=== PATIENT | male | born 1940 | race Caucasian/White ===

== ENCOUNTER → 2016-08-20 | Outpatient (CLI) | payer OTHER ==
[~2016-08-20] MED LIST: AMIO0.1T PO; AMIO200T4 PO; ASMIN INH; CRD200 PO; FURO-85 PO; IPRA1AER2 INH; LISI-461 PO; LSX20 PO; MECL1TAB42 PO; ONDA4TAB10 SL; POTA10CA28 PO; POTA10TA PO; PRVC/40 PO; SERT-234 PO; TAMS0.4C38 PO; TPRSR50 PO; WARF1TAB PO
[2016-08-20 14:09] LABS: THYROID STIMULATING HORMONE 2.41 uIu/ml (0.300-4.500)
== END | disposition home or self-care (01) ==
LOC: C.LAB1850 12:00
PROVIDERS: ATTEND Internal Medicine Cardiovascular Disease
DX: Z51.81 Encounter for therapeutic drug level monitoring (principal); Z79.899 Other long term (current) drug therapy

== ENCOUNTER 2016-09-11 16:02 | Observation (INO) | payer OTHER ==
[~2016-09-11] VITALS: Ht 182.9 cm; Wt 91.7 kg
[~2016-09-11 16:02] MED LIST changes: -AMIO0.1T PO; -AMIO200T4 PO; -FURO-85 PO; -LISI-461 PO; -MECL1TAB42 PO; -ONDA4TAB10 SL; -POTA10CA28 PO
[2016-09-11] MEDS ORDERED: FURO-85 PO (17:04)
[2016-09-11] MEDS ORDERED: POTA10CA28 PO (17:04)
[2016-09-11] MEDS ORDERED: AMIO200T4 PO (17:04)
[2016-09-11] MEDS ORDERED: LISI-461 PO (17:04)
[2016-09-11] MEDS ORDERED: SODIUM CHLORIDE 0.9% 1000ML 1,000 ML IV STA (17:21)
[2016-09-11] MEDS ORDERED: DIAZEPAM INJ 5 MG/ML 2 ML CARP IV STA (17:21)
[2016-09-11] MEDS ORDERED: MECLIZINE HCL 25 MG TAB PO STA (17:21)
[2016-09-11] MEDS ORDERED: ONDANSETRON INJ 2 MG/ML 2 ML VIAL IV STA (17:21)
--- NOTE | 2016-09-11 17:23 | EMERGENCY ROOM VISIT NOTE ---
History Report prepared by Dawn: Hector Guaman Under the Supervision of: Dr. Fritz Salgado M.D. First contact with patient: 17:15 Chief Complaint: DIZZY Stated Complaint: DIZZY, GAGGING, FALLING OVER Nursing Triage Summary: Pt fell out of bed this morning, dizzy. denies hitting head. Per , pt reports that "everything was going around in a ring. then was gagging and nothing was coming out". Pt unsteady on feet, dry heaves, throughing up yellowish mucus. Pt reports dizziness with eyes open, or movement. denies pain Pt reports dizziness, N,V when eyes open. Gait very unsteady. Pt's reports pt attemped to get oob and face planted on carpet. No visable injuries to face. Pt is on Coumadin for Afib. History of Present Illness The patient is a 75 year old male who presents to the Emergency Room with complaints of persistent dizziness that started this morning. He says that only laying down makes the dizziness dissipate. If he sits up, the dizziness remains. The patient says that he has never had this before. Per the patient's , the patient went to the bathroom around 0700 this morning, and when he was sitting on the toilet, he got really lightheaded. The patient then went back into bed, but could not get out of bed. When he tried to get out of bed, he fell flat on his face. The patient adds that he has been nauseous, gagging and dry heaving. He has also been vomiting yellowish mucous. He says that has been having abdominal pain as well. The patient is on Coumadin for atrial fibrillation. Source of History: patient, spouse/significant other Onset: This morning Position: other (global - dizziness) Timing: other (persistent) Modifying Factors (Worsening): other (sitting up) Modifying Factors (Relieving): other (laying down) Associated Symptoms: + nausea, + vomiting (yellowish mucous), + abdominal pain Note: Associated symptoms: Gagging, dry heaving. Lightheaded on toilet. Review of Systems See HPI for pertinent positives & negatives. A total of 10 systems reviewed and were otherwise negative. Past Medical & Surgical Medical Problems: (1) Atrial fibrillation (2) Hypertension (3) SOB (shortness of breath) (4) Tonsillitis Family History NE FATHER, Onset:48 Social History Smoking Status: Former Smoker Drug Use: none Marital Status: Housing Status: lives with family Occupation Status: retired Current/Historical Medications Scheduled Amiodarone Hcl (Cordarone), 400 MG PO Q2D Amiodarone Hcl (Cordarone), 200 MG PO Q2D Lisinopril (Zestril), 10 MG PO BID Metoprolol Succinate (Metoprolol Succinate ER), 50 MG PO QAM Ondasetron Odt (Zofran Odt), 4 MG SL Q6H Sertraline (Zoloft), 100 MG PO DAILY Tamsulosin Hcl (Flomax), 0.4 MG PO HS Warfarin Sodium (Coumadin), 1 MG PO MON. & JUAN CARLOS Warfarin Sodium (Coumadin), 2 MG PO [id number] Scheduled PRN Furosemide (Lasix), 20 MG PO DAILY PRN for EDEMA Meclizine Hcl (Meclizine Hcl), 1 TAB PO TID PRN for Dizziness or Vertigo Potassium Chloride (Micro-K Ext Rel), 10 MEQ PO DAILY PRN for . Pravastatin Sod (Pravastatin Sodium), 20 MG PO DAILY PRN for . Allergies Coded Allergies: No Known Allergies (Unverified , 09/11/16) Physical Exam Vital Signs Date Time Temp Pulse Resp B/P (MAP) Pulse Ox O2 Delivery O2 Flow Rate FiO2 09/11/16 19:56 48 10 167/82 94 09/11/16 19:32 54 19 09/11/16 18:32 53 18 100 09/11/16 18:02 49 20 98 09/11/16 17:59 175/85 09/11/16 17:44 Room Air 09/11/16 17:43 Room Air 09/11/16 17:32 57 13 09/11/16 17:14 51 09/11/16 16:06 36.4 56 18 186/82 97 Room Air Physical Exam GENERAL: Patient is a healthy-appearing well-nourished 75 year old male. Acutely dizzy. Cannot sit up or stand up. HEAD: Normocephalic atraumatic EYES: Ocular movements intact pupils equal and react to light OROPHARYNX mucous membranes are moist no exudates present no erythema or edema present NECK: Supple no nuchal rigidity CHEST: Good equal expansion LUNGS: Clear and equal to auscultation CARDIAC: Normal S1 and S2 ABDOMEN: Soft nontender no guarding BACK: No CVA tenderness EXTREMITIES: No pain upon palpation normal muscle strength in all groups no clubbing cyanosis or edema NEURO: Patient is following commands and answering questions appropriately. Alert and oriented x3 Cranial Nerves 2-12 grossly intact Medical Decision & Procedures ER Provider Diagnostic Interpretation: CT results as stated below per my review and radiologist interpretation: CT OF THE HEAD WITHOUT CONTRAST CLINICAL HISTORY: Acute dizziness. Fall. COMPARISON STUDY: No previous studies for comparison. CT DOSE: 601.98 mGy.cm TECHNIQUE: Helical axial images of the head were obtained without IV contrast. Automated exposure control was utilized for the study. FINDINGS: No acute intracranial hemorrhage, midline shift or mass effect is present. Ventricular system is normal. Basilar cisterns are patent. There are no extra-axial collections. Finley-white differentiation is maintained. There are no findings to suggest acute dural sinus thrombosis or acute territorial infarct. There is moderate polypoid mucosal thickening of the sinuses. There are no significant calvarial abnormalities. IMPRESSION: No acute intracranial findings. Electronically signed by: Bulmaro Stockton M.D. 09/11/2016 7:19 PM Dictated Date/Time: 09/11/2016 7:16 PM Laboratory Results 09/11/16 17:10 Red Blood Count 4.99, Mean Corpuscular Volume 84.8, Mean Corpuscular Hemoglobin 29.7, Mean Corpuscular Hemoglobin Concent 35.0, Mean Platelet Volume 9.0, Neutrophils (%) (Auto) 90.0, Lymphocytes (%) (Auto) 5.5, Monocytes (%) (Auto) 4.0, Eosinophils (%) (Auto) 0.1, Basophils (%) (Auto) 0.2, Neutrophils # (Auto) 8.49, Lymphocytes # (Auto) 0.52, Monocytes # (Auto) 0.38, Eosinophils # (Auto) 0.01, Basophils # (Auto) 0.02 09/11/16 17:10 Test 09/11/16 17:10 09/11/16 18:35 White Blood Count 9.44 K/uL (4.8-10.8) Red Blood Count 4.99 M/uL (4.7-6.1) Hemoglobin 14.8 g/dL (14.0-18.0) Hematocrit 42.3 % (42-52) Mean Corpuscular Volume 84.8 fL (80-100) Mean Corpuscular Hemoglobin 29.7 pg (25-34) Mean Corpuscular Hemoglobin Concent 35.0 g/dl (32-36) Platelet Count 204 K/uL (130-400) Mean Platelet Volume 9.0 fL (7.4-10.4) Neutrophils (%) (Auto) 90.0 % Lymphocytes (%) (Auto) 5.5 % Monocytes (%) (Auto) 4.0 % Eosinophils (%) (Auto) 0.1 % Basophils (%) (Auto) 0.2 % Neutrophils # (Auto) 8.49 K/uL (1.4-6.5) Lymphocytes # (Auto) 0.52 K/uL (1.2-3.4) Monocytes # (Auto) 0.38 K/uL (0.11-0.59) Eosinophils # (Auto) 0.01 K/uL (0-0.5) Basophils # (Auto) 0.02 K/uL (0-0.2) RDW Standard Deviation 42.1 fL (36.4-46.3) RDW Coefficient of Variation 13.7 % (11.5-14.5) Immature Granulocyte % (Auto) 0.2 % Immature Granulocyte # (Auto) 0.02 K/uL (0.00-0.02) Prothrombin Time 16.9 SECONDS (9.0-12.0) Prothromb Time International Ratio 1.6 (0.9-1.1) Anion Gap 10.0 mmol/L (3-11) Est Creatinine Clear Calc Drug Dose 72.2 ml/min Estimated GFR () 76.8 Estimated GFR (Non- 66.2 BUN/Creatinine Ratio 16.0 (10-20) Calcium Level 8.5 mg/dl (8.5-10.1) Total Bilirubin 0.8 mg/dl (0.2-1) Direct Bilirubin 0.2 mg/dl (0-0.2) Aspartate Amino Transf (AST/SGOT) 15 U/L (15-37) Alanine Aminotransferase (ALT/SGPT) 27 U/L (12-78) Alkaline Phosphatase 75 U/L (45-117) Total Creatine Kinase 44 U/L (39-308) Creatine Kinase MB 0.9 ng/ml (0.5-3.6) Creatine Kinase MB Ratio 2.0 (0-3.0) Troponin I < 0.015 ng/ml (0-0.045) Total Protein 7.1 gm/dl (6.4-8.2) Albumin 3.8 gm/dl (3.4-5.0) Thyroid Stimulating Hormone (TSH) 1.910 uIu/ml (0.300-4.500) Urine Color YELLOW Urine Appearance CLEAR (CLEAR) Urine pH 8.0 (4.5-7.5) Urine Specific Weir 1.017 (1.000-1.030) Urine Protein NEG (NEG) Urine Glucose (UA) NEG (NEG) Urine Ketones NEG (NEG) Urine Occult Blood NEG (NEG) Urine Nitrite NEG (NEG) Urine Bilirubin NEG (NEG) Urine Urobilinogen NEG (NEG) Urine Leukocyte Esterase NEG (NEG) Labs reviewed by ED physician. Medications Administered Medications (Trade) Dose Ordered Sig/Mady Route Start Time Stop Time Status Last Admin Dose Admin Meclizine HCl (Antivert Tab) 25 mg NOW STAT PO 09/11/16 17:21 09/11/16 17:24 DC 09/11/16 17:51 25 MG Ondansetron HCl (Zofran Inj) 4 mg NOW STAT IV 09/11/16 17:21 09/11/16 17:24 DC 09/11/16 17:51 4 MG Diazepam (Valium Inj) 5 mg NOW STAT IV 09/11/16 17:21 09/11/16 17:24 DC 09/11/16 17:52 5 MG Sodium Chloride 1,000 ml @ 999 mls/hr Q1H1M STAT IV 09/11/16 17:21 09/11/16 18:21 DC 09/11/16 17:52 999 MLS/HR ECG Indication: other (dizziness) Rate (beats per minute): 51 Rhythm: sinus bradycardia Findings: no acute ischemic change, prolonged QT, no ectopy ED Course 1715: Past medical records reviewed. The patient was evaluated in room B10. A complete history and physical examination was performed. 1720: Ordered NSS 1000 ml @ 999 mls/hr IV, Valium Inj 5 mg IV, Zofran Inj 4 mg IV, Antivert Tab 25 mg PO. 1821: I reevaluated the patient and updated the patient. 1954: I reevaluated the patient and he failed to walk. The patient verbally expressed understanding and agreement of the treatment plan. The patient will be evaluated for further treatment. Medical Decision Differential diagnosis: Etiologies such as metabolic, infection, hypo/hyperglycemia, electrolyte abnormalities, cardiac sources, intracerebral event, toxicologic, neurologic, as well as others were entertained. Medication Reconciliation: I attest that I have personally reviewed the patient' s current medication list Blood Pressure Screening: Patient was found to have an elevated blood pressure and was referred to their primary care doctor for recheck and further treatment This is a 75-year-old male who presents emergency department complaining of severe dizziness. The patient's dizziness appears to fatigue with some time therefore he was given Antivert as well as valium. I will note that the patient is on Coumadin for atrial fibrillation however he is not therapeutic. As the patient's symptoms are have been ongoing since 7 this morning I would expect him to have findings on his CAT scan of his head if this were a stroke however it is normal. Nursing attempted to and believe the patient after he was given his meclizine Zofran and Antivert however he did very poorly. Based on this I will discuss the case with the hospitalist service. Impression Primary Impression: Vertigo Scribe Attestation The scribe's documentation has been prepared under my direction and personally reviewed by me in its entirety. I confirm that the note above accurately reflects all work, treatment, procedures, and medical decision making performed by me. Departure Information Dispostion Being Evaluated By Hospitalist Prescriptions Ondasetron Odt (ZOFRAN ODT) 4 Mg Tab 4 MG SL Q6H for Nausea, #6 TAB Prov: Fritz Salgdao MD 09/11/16 Meclizine Hcl (MECLIZINE HCL) 25 Mg Tab 1 TAB PO TID Y for Dizziness or Vertigo for 10 Days, #30 TAB Prov: Fritz Salgado MD 09/11/16 Referrals Blane Salter M.D. (PCP) Ro Shrestha M.D. Forms HOME CARE DOCUMENTATION FORM, IMPORTANT VISIT INFORMATION, School Instructions, Work Instructions Patient Instructions ED BPV Vertigo, My [facility] Additional Instructions Follow up with DR Shrestha's office for continued dizziness You were found to have an elevated blood pressure today (>120 sytolic or >90 diastolic). Per medicare guidelines, you need to follow up with this blood pressure screening with your Primary Care Physician (PCP). For a new PCP call [phone]. You received narcotic or benzodiazepene medication while in the emergency room today. Do not drive, operate heavy machinery, or drink alcohol under the influence of this medication. You have been examined and treated today on an emergency basis only. This is not a substitute for, or an effort to provide, complete comprehensive medical care. It is impossible to recognize and treat all injuries or illnesses in a single emergency department visit. It is therefore important that you follow up closely with Dr Salter. Call as soon as possible for an appointment. Thank you for your time and consideration. I look forward to speaking with you again soon. Please don't hesitate to call us if you have any questions.
[2016-09-11 17:42] LABS: BASO % 0.2 %; BASO ABS # 0.02 K/uL (0-0.2); COMPLETE YES; EOS % 0.1 %; HEMATOCRIT 42.3 % (42-52); IG% 0.2 %; LYMPH % 5.5 %; LYMPH ABS # 0.52 K/uL (1.2-3.4); MEAN CELL VOLUME 84.8 fL (80-100); MEAN CORPUSCULAR HEMOGLOBIN 29.7 pg (25-34); PLATELET COUNT 204 K/uL (130-400); RED BLOOD COUNT 4.99 M/uL (4.7-6.1); WHITE BLOOD COUNT 9.44 K/uL (4.8-10.8)
[2016-09-11 17:50] LABS: INR 1.6 (0.9-1.1); PROTHROMBIN TIME (PATIENT) 16.9 SECONDS (9.0-12.0)
[2016-09-11 18:16] LABS: ALT/SGPT 27 U/L (12-78); AST/SGOT 15 U/L (15-37); BLOOD UREA NITROGEN 18 mg/dl (7-18); CALCIUM 8.5 mg/dl (8.5-10.1); CARBON DIOXIDE 24 mmol/L (21-32); CHLORIDE 107 mmol/L (98-107); GLUCOSE 136 mg/dl (70-99); POTASSIUM 3.6 mmol/L (3.5-5.1); SODIUM 141 mmol/L (136-145)
[2016-09-11 18:26] LABS: ALKALINE PHOSPHATASE 75 U/L (45-117)
[2016-09-11 18:54] LABS: URINE APPEARANCE CLEAR (CLEAR); URINE BILIRUBIN NEG (NEG); URINE COLOR YELLOW; URINE NITRITE NEG (NEG); URINE SPECIFIC GRAVITY 1.017 (1.000-1.030); UROBILINOGEN NEG (NEG)
[2016-09-11 19:08] LABS: MANUAL MICROSCOPIC REQUIRED? NO; REVIEW REQ? NO
--- NOTE | 2016-09-11 19:20 | DIAGNOSTIC IMAGING REPORT ---
CT OF THE HEAD WITHOUT CONTRAST CLINICAL HISTORY: Acute dizziness. Fall. COMPARISON STUDY: No previous studies for comparison. CT DOSE: 601.98 mGy.cm TECHNIQUE: Helical axial images of the head were obtained without IV contrast. Automated exposure control was utilized for the study. FINDINGS: No acute intracranial hemorrhage, midline shift or mass effect is present. Ventricular system is normal. Basilar cisterns are patent. There are no extra-axial collections. Finley-white differentiation is maintained. There are no findings to suggest acute dural sinus thrombosis or acute territorial infarct. There is moderate polypoid mucosal thickening of the sinuses. There are no significant calvarial abnormalities. IMPRESSION: No acute intracranial findings. Electronically signed by: Bulmaro Stockton M.D. 09/11/2016 7:19 PM Dictated Date/Time: 09/11/2016 7:16 PM
[2016-09-11] MEDS ORDERED: MECL1TAB42 PO (19:46)
[2016-09-11] MEDS ORDERED: ONDA4TAB10 SL (19:49)
[2016-09-11] MEDS ORDERED: GADAVIST IV PRN (22:45)
--- NOTE | 2016-09-11 23:08 | DIAGNOSTIC IMAGING REPORT ---
MRI OF THE BRAIN WITHOUT AND WITH IV CONTRAST CLINICAL HISTORY: Severe dizziness. COMPARISON STUDY: Head CT performed earlier today. TECHNIQUE: Utilizing a 1.5 Sabiha magnet and dedicated coil, multiplanar, multiecho imaging of the brain was performed pre and postcontrast administration. IV administration of 9.5 mL of Gadavist contrast was uneventful. FINDINGS: There are no areas of restricted diffusion. No acute intracranial hemorrhage, midline shift or mass effect is present. There is moderate atrophy. Ventricular system is unremarkable for age. Basilar cisterns are patent. Flow-voids for the major intracranial vessels are present. There is no intracranial mass or pathologic enhancement. Scattered white matter T2 hyperintense foci suggest mild small vessel disease. Calvarial signal is unremarkable. There are few mucous retention cysts within the maxillary sinuses. There is no fluid within the mastoid air cells. IMPRESSION: 1. No acute intracranial findings. 2. No intracranial mass or pathologic enhancement. 3. Mild small vessel disease and moderate atrophy. Electronically signed by: Bulmaro Stockton M.D. 09/11/2016 11:06 PM Dictated Date/Time: 09/11/2016 11:03 PM
--- NOTE | 2016-09-11 23:10 | DIAGNOSTIC IMAGING REPORT ---
MRA OF THE INTRACRANIAL CIRCULATION WITHOUT CONTRAST CLINICAL HISTORY: Severe dizziness. COMPARISON STUDY: None. TECHNIQUE: Utilizing a 1.5 Sabiha magnet and 3-D [id number] technique, unenhanced MRA of the intracranial circulation was obtained. 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 The anterior cerebral arteries both arise from the left A1 segment. There is no intracranial aneurysm or abrupt vessel cut off. Posterior circulation is intact. IMPRESSION: Unremarkable MRA of the intracranial circulation. Electronically signed by: Bulmaro Stockton M.D. 09/11/2016 11:09 PM Dictated Date/Time: 09/11/2016 11:07 PM
--- NOTE | 2016-09-11 23:15 | DIAGNOSTIC IMAGING REPORT ---
MRA OF THE NECK WITH AND WITHOUT CONTRAST CLINICAL HISTORY: Severe dizziness. COMPARISON STUDY: None. TECHNIQUE: Unenhanced and contrast-enhanced MRA of the neck was performed. Injection of 9.5 mL of Gadavist IV was uneventful. NASCET criteria were utilized to estimate the degree of carotid stenosis. FINDINGS: There is mild plaque within the proximal left internal carotid artery without significant stenosis. The origin of the right internal carotid artery is patent. The proximal right internal carotid artery is suboptimally assessed due to artifact on this exam but is patent. Evaluation of the origins of the bilateral vertebral arteries is suboptimal. However, the remainder of the bilateral vertebral arteries are patent. IMPRESSION: 1. Suboptimal evaluation of the proximal right internal carotid artery due to artifact. Stenosis within this vessel cannot be excluded on this exam. 2. Mild plaque within the proximal left internal carotid artery without significant stenosis. 3. Suboptimal evaluation of the bilateral vertebral artery origins. No stenoses within the remainder of the bilateral vertebral arteries. Electronically signed by: Bulmaro Stockton M.D. 09/11/2016 11:14 PM Dictated Date/Time: 09/11/2016 11:09 PM
[2016-09-12] VITALS (10 sets, daily range): BP systolic 151–178; BP diastolic 63–87; PULSE 43–60; TEMP 36.6–36.8; O2SAT 93–97; Ht 182.9 cm; Wt 91.7 kg
[2016-09-12] MEDS ORDERED: NITROGLYCERIN 0.4 MG SL PER TAB CHARGE SL PRN (00:15)
[2016-09-12] MEDS ORDERED: PRAVASTATIN SOD 40 MG TAB PO PRN (00:15)
[2016-09-12] MEDS ORDERED: MECLIZINE HCL 25 MG TAB PO PRN (00:15)
[2016-09-12] MEDS ORDERED: MoRPHine SULFATE 2 MG/ML CARP IV PRN (00:15)
[2016-09-12] MEDS ORDERED: ACETAMINOPHEN 325 MG TAB PO PRN (00:15)
[2016-09-12] MEDS ORDERED: ALUMINUM/MAGNESIUM/SIMETH (MAALOX MAX) 30 ML UDC PO PRN (00:15)
[2016-09-12] MEDS ORDERED: MAGNESIUM HYDROXIDE SUSP 30 ML UDC PO PRN (00:15)
[2016-09-12] MEDS ORDERED: ONDANSETRON INJ 2 MG/ML 2 ML VIAL IV PRN (00:15)
[2016-09-12] MEDS ORDERED: POLYETHYLENE (MIRALAX) 17 GM PACK PO PRN (00:15)
[2016-09-12] MEDS ORDERED: WARFARIN SOD 1 MG TAB PO STA (00:18)
[2016-09-12] MEDS ORDERED: IV FLUIDS COMPLETED PRN (00:45)
--- NOTE | 2016-09-12 00:49 | History and Physical ---
History & Physical Date & Time of Service: Sep 12, 2016 at 00:26 Chief Complaint: Dizzy, Gagging, Falling Over Primary Care Physician: Blane Salter M.D. History of Present Illness Source: patient 75 y/o M Hx CHF (40%), PAF, HTN, HPL. Presents with dizziness and nausea x 1 day. Had an elevated BP 9180 systolic) on arrival. Denies CP, SOB, vomiting, dysuria or fevers. Pts HR noted to be in the mid 40s-50s. He is taking both Metoprolol and Amio for PAF. He takes Coumadin as well although his INR is subtherapeutic on admission. Past Medical/Surgical History 1) CHF - chronic systolic - EF 40% 2015 - per review of cardiology notes etiology is nonischemic 2) HTN 3) HPL 4) Depression 5) BPH 6) Paroxysmal AF - on Coumadin 7) Essential tremor 8) Moderate MR Family History [place] FATHER, Onset:48 Social History Smoking Status: Former Smoker Drug Use: none Marital Status: Occupational Status: retired Multi-Drug Resistant Organisms History of MDRO: No Allergies Coded Allergies: No Known Allergies (Unverified , 09/11/16) Home Medications Scheduled Amiodarone Hcl (Cordarone), 400 MG PO Q2D Amiodarone Hcl (Cordarone), 200 MG PO Q2D Lisinopril (Zestril), 10 MG PO BID Metoprolol Succinate (Metoprolol Succinate ER), 50 MG PO QAM Ondasetron Odt (Zofran Odt), 4 MG SL Q6H Sertraline (Zoloft), 100 MG PO DAILY Tamsulosin Hcl (Flomax), 0.4 MG PO HS Warfarin Sodium (Coumadin), 1 MG PO MON. & JUAN CARLOS Warfarin Sodium (Coumadin), 2 MG PO 4XWK Scheduled PRN Furosemide (Lasix), 20 MG PO DAILY PRN for EDEMA Meclizine Hcl (Meclizine Hcl), 1 TAB PO TID PRN for Dizziness or Vertigo Potassium Chloride (Micro-K Ext Rel), 10 MEQ PO DAILY PRN for . Pravastatin Sod (Pravastatin Sodium), 20 MG PO DAILY PRN for . Review of Systems Constitutional: + weakness, No fever, No chills, No sweats Eyes: No worsening of vision, No eye pain ENT: No hearing loss, No unusual epistaxis, No nasal symptoms Respiratory: No cough, No sputum, No wheezing Cardiovascular: No chest pain, No orthopnea, No PND Abdomen: + nausea, No pain, No vomiting Musculoskeletal: No joint pain Genitourinary - Male: No hematuria Neurologic: + weakness, + vertigo, + balance problems, No memory loss Psychiatric: No depression symptoms Endocrine: No fatigue Hematologic / Lymphatic: No abnormal bleeding/bruising Integumentary: No rash Allergic / Immunologic: No environmental allergies Physical Exam Vital Signs Date Time Temp Pulse Resp B/P (MAP) Pulse Ox O2 Delivery O2 Flow Rate FiO2 09/11/16 22:59 51 16 168/78 95 09/11/16 21:00 49 17 184/83 99 Room Air 09/11/16 19:56 48 10 167/82 94 09/11/16 19:32 54 19 09/11/16 18:32 53 18 100 09/11/16 18:02 49 20 98 09/11/16 17:59 175/85 09/11/16 17:44 Room Air 09/11/16 17:43 Room Air 09/11/16 17:32 57 13 09/11/16 17:14 51 09/11/16 16:06 36.4 56 18 186/82 97 Room Air General Appearance: WD/WN, no apparent distress Head: normocephalic Eyes: normal inspection, EOMI ENT: normal ENT inspection, TMs normal, pharynx normal Neck: supple, no JVD Respiratory/Chest: chest non-tender, lungs clear, normal breath sounds, no respiratory distress, no accessory muscle use Cardiovascular: regular rate, rhythm, no edema, no gallop, no JVD, + systolic murmur Abdomen/GI: normal bowel sounds, non tender, soft Back: normal inspection, no CVA tenderness Extremities/Musculoskelatal: normal inspection, no calf tenderness, normal capillary refill, no pedal edema, normal range of motion 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, no motor/sensory deficits, alert, normal mood/affect, normal reflexes, oriented x 3, + pertinent finding (No discernable focal defecits on complete exam - gait not tested) Skin: normal color, warm/dry, no rash Diagnostics Laboratory Results Results Past 24 Hours Test 09/11/16 17:10 09/11/16 18:35 Range/Units White Blood Count 9.44 4.8-10.8 K/uL Red Blood Count 4.99 4.7-6.1 M/uL Hemoglobin 14.8 14.0-18.0 g/dL Hematocrit 42.3 42-52 % Mean Corpuscular Volume 84.8 80-100 fL Mean Corpuscular Hemoglobin 29.7 25-34 pg Mean Corpuscular Hemoglobin Concent 35.0 32-36 g/dl Platelet Count 204 130-400 K/uL Mean Platelet Volume 9.0 7.4-10.4 fL Neutrophils (%) (Auto) 90.0 % Lymphocytes (%) (Auto) 5.5 % Monocytes (%) (Auto) 4.0 % Eosinophils (%) (Auto) 0.1 % Basophils (%) (Auto) 0.2 % Neutrophils # (Auto) 8.49 1.4-6.5 K/uL Lymphocytes # (Auto) 0.52 1.2-3.4 K/uL Monocytes # (Auto) 0.38 0.11-0.59 K/uL Eosinophils # (Auto) 0.01 0-0.5 K/uL Basophils # (Auto) 0.02 0-0.2 K/uL RDW Standard Deviation 42.1 36.4-46.3 fL RDW Coefficient of Variation 13.7 11.5-14.5 % Immature Granulocyte % (Auto) 0.2 % Immature Granulocyte # (Auto) 0.02 0.00-0.02 K/uL Prothrombin Time 16.9 9.0-12.0 SECONDS Prothromb Time International Ratio 1.6 0.9-1.1 Sodium Level 141 136-145 mmol/L Potassium Level 3.6 3.5-5.1 mmol/L Chloride Level 107 98-107 mmol/L Carbon Dioxide Level 24 21-32 mmol/L Anion Gap 10.0 3-11 mmol/L Blood Urea Nitrogen 18 7-18 mg/dl Creatinine 1.10 0.60-1.40 mg/dl Est Creatinine Clear Calc Drug Dose 72.2 ml/min Estimated GFR () 76.8 Estimated GFR (Non- 66.2 BUN/Creatinine Ratio 16.0 10-20 Random Glucose 136 70-99 mg/dl Calcium Level 8.5 8.5-10.1 mg/dl Total Bilirubin 0.8 0.2-1 mg/dl Direct Bilirubin 0.2 0-0.2 mg/dl Aspartate Amino Transf (AST/SGOT) 15 15-37 U/L Alanine Aminotransferase (ALT/SGPT) 27 12-78 U/L Alkaline Phosphatase 75 45-117 U/L Total Creatine Kinase 44 39-308 U/L Creatine Kinase MB 0.9 0.5-3.6 ng/ml Creatine Kinase MB Ratio 2.0 0-3.0 Troponin I < 0.015 0-0.045 ng/ml Total Protein 7.1 6.4-8.2 gm/dl Albumin 3.8 3.4-5.0 gm/dl Thyroid Stimulating Hormone (TSH) 1.910 0.300-4.500 uIu/ml Urine Color YELLOW Urine Appearance CLEAR CLEAR Urine pH 8.0 4.5-7.5 Urine Specific [place] 1.017 1.000-1.030 Urine Protein NEG NEG Urine Glucose (UA) NEG NEG Urine Ketones NEG NEG Urine Occult Blood NEG NEG Urine Nitrite NEG NEG Urine Bilirubin NEG NEG Urine Urobilinogen NEG NEG Urine Leukocyte Esterase NEG NEG Diagnostic Radiology MRA neck - suboptimal eval 1. Suboptimal evaluation of the proximal right internal carotid artery due to artifact. Stenosis within this vessel cannot be excluded on this exam. 2. Mild plaque within the proximal left internal carotid artery without significant stenosis. 3. Suboptimal evaluation of the bilateral vertebral artery origins. No stenoses within the remainder of the bilateral vertebral arteries. MRA brain Unremarkable MRA of the intracranial circulation. MRI brain 1. No acute intracranial findings. 2. No intracranial mass or pathologic enhancement. 3. Mild small vessel disease and moderate atrophy. EKG Sinus wayne - no evidence of acute ischemia - QT prolonged in context of bradycardia Impression Assessment and Plan 75 y/o M Hx CHF (40%), PAF, HTN, HPL. Presents with dizziness and nausea x 1 day. Had an elevated BP 9180 systolic) on arrival. Denies CP, SOB, vomiting, dysuria or fevers. Pts HR noted to be in the mid 40s-50s. He is taking both Metoprolol and Amio for PAF. He takes Coumadin as well, although his INR is subtherapeutic on admission. 1) Dizziness and nausea - concern is that this is related to bradycardia - we have held the Pts Bblocker and will continue a lower dose of Amio pending evaluation by cardiology. This may also be BPV and unrelated to his HR. A CVA has essentially been ruled out with MRI/MRA prior to evaluation by the medical service. A carotid doppler is pending due to a suboptimal MRA neck. We will provide gentle hydration overnight and have held his diuretic. Orthostatics will be obtained with vitals. 2) PAF - sinus wayne on arrival - monitor on telemetry as B sue held. Additional dose of Coumadin provided as INR was 1.6 on arrival. 3) CHF - diuretic held - monitor volume status - gentle hydration will be provided overnight due to clinical dehydration 4) HTN - poorly controlled on arrival - as Metoprolol is held, we will treat with Lisinopril and PRN Hydralazine. 5) HPL - cont Statin Full code - Coumadin prophylaxis Total time for this admit including review of labs, meds, EKG, imaging - discussion with pt and ER attending - 38 min Level of Care Telemetry Resuscitation Status FULL RESUSCITATION VTE Prophylaxis VTE Risk Assessment Done? Y/N: Yes Risk Level: Moderate Given or contraindicated: Warfarin (Coumadin)
[2016-09-12] MEDS ORDERED: HydrALAZINE HCL 20 MG/ML VIAL IV. PRN (01:00)
[2016-09-12] MEDS ORDERED: NSS + 20MEQ KCL 1000ML 1,000 ML IV SCH (01:45)
[2016-09-12 05:30] LABS: INR 1.5 (0.9-1.1); PROTHROMBIN TIME (PATIENT) 16.2 SECONDS (9.0-12.0)
--- NOTE | 2016-09-12 07:18 | DIAGNOSTIC IMAGING REPORT ---
ULTRASOUND OF THE CAROTID ARTERIES CLINICAL HISTORY: Transient ischemic attack. COMPARISON STUDY: MR angiogram of the neck dated 09/11/2016. Thyroid ultrasound dated 10/18/2013. TECHNIQUE: Real-time, grayscale, and color Doppler sonography of the carotid arteries is performed. Images are reviewed in the transverse and longitudinal planes. FINDINGS: Blood pressure in the right arm measures 151/63 and blood pressure in the left arm measures 159/72. The carotid arteries are patent bilaterally and demonstrate antegrade flow. There is no significant atherosclerotic plaque identified. Normal doppler arterial waveforms are seen throughout. Velocity measurements are listed below. Common carotid peak systolic velocity (cm/sec): RIGHT: 66 LEFT: 7 day ICA proximal peak systolic velocity (cm/sec): RIGHT: 65 LEFT: 70 ICA mid peak systolic velocity (cm/sec): RIGHT: 51 LEFT: 74 ICA distal peak systolic velocity (cm/sec): RIGHT: 54 LEFT: 75 ICA/CC peak systolic ratio: RIGHT: 1.0 LEFT: 1.1 Antegrade flow was shown in the vertebral arteries. The external carotid arteries are patent. Thyroid nodules are incidentally noted. The largest is in the right lobe and measures 2.6 cm. IMPRESSION: 1. There is no sonographic evidence of hemodynamically significant stenosis in the right or left carotid arterial system. 2. Antegrade flow is shown in the vertebral arteries. 3. There is a calcification containing right-sided thyroid nodule measuring up to 2.6 cm. This was also seen by ultrasound on 10/18/2013. Electronically signed by: Ronal Nichols M.D. 09/12/2016 7:16 AM Dictated Date/Time: 09/12/2016 7:14 AM
[2016-09-12] MEDS: LISINOPRIL 10 MG TAB PO SCH ×2 (08:57→21:14)
[2016-09-12] MEDS: SERTRALINE HCL 100 MG TAB PO SCH (08:57)
[2016-09-12 09:57] LABS: BASO % 0.2 %; BASO ABS # 0.02 K/uL (0-0.2); COMPLETE YES; EOS % 1.1 %; HEMATOCRIT 39.7 % (42-52); IG% 0.1 %; LYMPH % 9.4 %; LYMPH ABS # 0.88 K/uL (1.2-3.4); MEAN CELL VOLUME 85.7 fL (80-100); MEAN CORPUSCULAR HEMOGLOBIN 29.2 pg (25-34); MEAN PLATELET VOLUME 8.6 fL (7.4-10.4); MONO % 6.7 %; NEUT % 82.5 %; PLATELET COUNT 199 K/uL (130-400); RED BLOOD COUNT 4.63 M/uL (4.7-6.1); WHITE BLOOD COUNT 9.36 K/uL (4.8-10.8)
[2016-09-12 10:29] LABS: BUN/CREATININE RATIO 16.1 (10-20); CALCIUM 8.4 mg/dl (8.5-10.1); CREATININE 1.2 mg/dl (0.60-1.40); MAGNESIUM 2.3 mg/dl (1.8-2.4); POTASSIUM 3.5 mmol/L (3.5-5.1)
--- NOTE | 2016-09-12 14:43 | Hospitalist Progress Note ---
Hospitalist Progress Note Date of Service Sep 12, 2016. Subjective Pt evaluation today including: conversation w/ patient, conversation w/ family , lab review, review of inpatient medication list Pt feeling better than on admission. He is sill having vertigo and room spinning especially with turning his head to the right. No more N/V and was able to eat today. Has chronic tinnitus and hearing loss with hearing aids, no change in that. No headache. No CP or SOB. He and say his HR has been in the 50s at office visits in the past. All Other Systems: Reviewed and Negative Objective Vital Signs Date Time Temp Pulse Resp B/P (MAP) Pulse Ox O2 Delivery O2 Flow Rate FiO2 09/12/16 12:00 94 Room Air 09/12/16 08:00 93 Room Air 09/12/16 08:00 36.6 43 10 171/79 (109) 93 Room Air 09/12/16 04:00 36.7 56 17 151/63 (92) 97 Room Air 09/12/16 04:00 97 Room Air 09/12/16 01:55 47 152/75 (100) 09/12/16 01:28 36.8 49 12 173/81 97 Room Air 09/12/16 01:01 48 09/12/16 00:57 48 09/12/16 00:44 46 16 175/76 91 09/11/16 23:14 48 09/11/16 22:59 51 16 168/78 95 09/11/16 21:00 49 17 184/83 99 Room Air 09/11/16 19:56 48 10 167/82 94 09/11/16 19:32 54 19 09/11/16 18:32 53 18 100 09/11/16 18:02 49 20 98 09/11/16 17:59 175/85 09/11/16 17:44 Room Air 09/11/16 17:43 Room Air 09/11/16 17:32 57 13 09/11/16 17:14 51 09/11/16 16:06 36.4 56 18 186/82 97 Room Air Physical Exam General Appearance: WD/WN, no apparent distress Eyes: normal inspection, PERRL, EOMI, sclerae normal ENT: normal ENT inspection, hearing grossly normal, TMs normal, pharynx normal Neck: supple, no adenopathy, thyroid normal, trachea midline Respiratory/Chest: lungs clear, normal breath sounds, no respiratory distress, no accessory muscle use Cardiovascular: no edema, no gallop, no murmur, + bradycardia (with reg rhythm) , + pertinent finding (soft S1) Abdomen: normal bowel sounds, non tender, soft Extremities: non-tender, normal inspection, no pedal edema, no calf tenderness 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, no motor/sensory deficits, alert, normal mood/affect, oriented x 3, + pertinent finding (gait not tested; has some nystagmus with horizontal gaze to the right; also with pill rolling resting tremor R>L hands) Skin: normal color, warm/dry, no rash Lymphatic: no adenopathy Laboratory Results Last 24 Hours Test 09/11/16 17:10 09/11/16 18:35 09/12/16 05:04 09/12/16 09:29 White Blood Count 9.44 K/uL 9.36 K/uL Red Blood Count 4.99 M/uL 4.63 M/uL Hemoglobin 14.8 g/dL 13.5 g/dL Hematocrit 42.3 % 39.7 % Mean Corpuscular Volume 84.8 fL 85.7 fL Mean Corpuscular Hemoglobin 29.7 pg 29.2 pg Mean Corpuscular Hemoglobin Concent 35.0 g/dl 34.0 g/dl Platelet Count 204 K/uL 199 K/uL Mean Platelet Volume 9.0 fL 8.6 fL Neutrophils (%) (Auto) 90.0 % 82.5 % Lymphocytes (%) (Auto) 5.5 % 9.4 % Monocytes (%) (Auto) 4.0 % 6.7 % Eosinophils (%) (Auto) 0.1 % 1.1 % Basophils (%) (Auto) 0.2 % 0.2 % Neutrophils # (Auto) 8.49 K/uL 7.72 K/uL Lymphocytes # (Auto) 0.52 K/uL 0.88 K/uL Monocytes # (Auto) 0.38 K/uL 0.63 K/uL Eosinophils # (Auto) 0.01 K/uL 0.10 K/uL Basophils # (Auto) 0.02 K/uL 0.02 K/uL RDW Standard Deviation 42.1 fL 43.2 fL RDW Coefficient of Variation 13.7 % 13.9 % Immature Granulocyte % (Auto) 0.2 % 0.1 % Immature Granulocyte # (Auto) 0.02 K/uL 0.01 K/uL Prothrombin Time 16.9 SECONDS 16.2 SECONDS Prothromb Time International Ratio 1.6 1.5 Sodium Level 141 mmol/L 142 mmol/L Potassium Level 3.6 mmol/L 3.5 mmol/L Chloride Level 107 mmol/L 110 mmol/L Carbon Dioxide Level 24 mmol/L 25 mmol/L Anion Gap 10.0 mmol/L 7.0 mmol/L Blood Urea Nitrogen 18 mg/dl 19 mg/dl Creatinine 1.10 mg/dl 1.20 mg/dl Est Creatinine Clear Calc Drug Dose 72.2 ml/min 65.8 ml/min Estimated GFR () 76.8 69.1 Estimated GFR (Non- 66.2 59.6 BUN/Creatinine Ratio 16.0 16.1 Random Glucose 136 mg/dl 104 mg/dl Calcium Level 8.5 mg/dl 8.4 mg/dl Total Bilirubin 0.8 mg/dl Direct Bilirubin 0.2 mg/dl Aspartate Amino Transf (AST/SGOT) 15 U/L Alanine Aminotransferase (ALT/SGPT) 27 U/L Alkaline Phosphatase 75 U/L Total Creatine Kinase 44 U/L Creatine Kinase MB 0.9 ng/ml Creatine Kinase MB Ratio 2.0 Troponin I < 0.015 ng/ml Total Protein 7.1 gm/dl Albumin 3.8 gm/dl Thyroid Stimulating Hormone (TSH) 1.910 uIu/ml Urine Color YELLOW Urine Appearance CLEAR Urine pH 8.0 Urine Specific [place] 1.017 Urine Protein NEG Urine Glucose (UA) NEG Urine Ketones NEG Urine Occult Blood NEG Urine Nitrite NEG Urine Bilirubin NEG Urine Urobilinogen NEG Urine Leukocyte Esterase NEG Magnesium Level 2.3 mg/dl Assessment and Plan 75 y/o M Hx chronic systolic nonischemic CHF (LVEF 35-40% in 02/2015), PAF on AC with coumadin, mild MR, HTN, HL, 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 Presents with dizziness and nausea x 1 day. Had an elevated BP on arrival. Denies CP, SOB, vomiting, dysuria or fevers. Pts HR noted to be in the mid 40s- 50s. He is taking both Metoprolol and Amio for PAF. He takes Coumadin as well , although his INR is subtherapeutic on admission. 1) Dizziness and nausea,Vertigo - concern initially was that this was related to bradycardia - and Pt's B-sue has been held. MRI brain neg for CVA. MRA and Carotid US negative. This is likely BPPV based on history and exam and ruling out of CVA. Improved today with meclizine. 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 Additional dose of Coumadin provided as INR was 1.6 on arrival. 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
[2016-09-12] MEDS: WARFARIN SOD 2 MG TAB PO SCH (16:46)
--- NOTE | 2016-09-12 18:18 | Cardiology Consultation ---
Cardiology Consultation Date of Consultation: Sep 12, 2016. Requesting Physician: Dr. Márquez Reason for Consultation: Bradycardia Pt evaluation today including: conversation w/ patient, physical exam, lab review, review of studies, review of inpatient medication list, conversation w/ attending History of Present Illness This is a 75-year-old gentleman with a history of atrial fibrillation diagnosed somewhere around July 2013. He developed congestive heart failure and had moderate left ventricular dysfunction identified in August 2013. It was felt that his cardiomyopathy may be due to the atrial arrhythmia. We converted his rhythm on 09/13/2013, but had recurrence 09/30/2013 and was unaware of the change in rhythm. Since then he has had atrial fibrillation alternating with sinus rhythm and sinus bradycardia. A nuclear treadmill stress test on 01/19/2015 showed no evidence of ischemia, a trial of amiodarone was used around February 2015 and he has been taking 200 mg of 100 mg daily. That seemingly has maintained sinus rhythm, but he does have sinus bradycardia and is on a beta sue. An echocardiogram done 08/28/2016 shows a reduced ejection fraction of 35-40% with mild left ventricular dilatation. He presented here with dizziness and nausea, was noted to be bradycardic. His symptoms have improved substantially following admission. Past Medical/Surgical History (1) Bradycardia (2) Atrial fibrillation (3) Hypertension Family History [place] FATHER, Onset:48 Social History Smoking Status: Unknown if Ever Smoked History of Alcohol Use: No Review of Systems Constitutional: No fever, No weight loss, No weakness Respiratory: + see HPI, + dyspnea on exertion Cardiac: No chest pain, No orthopnea, No PND, No edema, No palpitations Abdomen: No pain, No nausea, No vomiting, No diarrhea, No GI bleeding Male : No urinary frequency, No nocturia more than once/night, No slowing stream, No sexual dysfunction Neurologic: No paralysis, No weakness, No numbness/tingling, No balance problems Heme: No abnormal bleeding/bruising, No clotting problems Endo: No fatigue Skin: No problem reported All Other Systems: Reviewed and Negative Allergies Coded Allergies: No Known Allergies (Unverified , 09/11/16) Medications Current Inpatient Medications Medications (Trade) Dose Ordered Sig/Mady Route Start Time Stop Time Status Last Admin Dose Admin Gadobutrol (Gadavist) 9.5 mmol UD PRN IV 09/11/16 22:45 09/15/16 22:44 Amiodarone HCl (Cordarone Tab) 200 mg Q2D PO 09/13/16 09:00 10/13/16 08:59 Lisinopril (Zestril Tab) 10 mg BID PO 09/12/16 09:00 10/12/16 08:59 09/12/16 08:57 10 MG Meclizine HCl (Antivert Tab) 25 mg TID PRN PO 09/12/16 00:15 10/12/16 00:14 09/12/16 09:57 25 MG Sertraline HCl (Zoloft Tab) 100 mg DAILY PO 09/12/16 09:00 10/12/16 08:59 09/12/16 08:57 100 MG Tamsulosin HCl (Flomax Cap) 0.4 mg HS PO 09/12/16 21:00 10/12/16 20:59 Warfarin Sodium (Coumadin Tab) 2 mg DAILY@1600 PO 09/12/16 16:00 10/12/16 15:59 Acetaminophen (Tylenol Tab) 650 mg Q4H PRN PO 09/12/16 00:15 10/12/16 00:14 Al Hydrox/Mg Hydrox/Simethicone (Maalox Max Susp) 15 ml Q4H PRN PO 09/12/16 00:15 10/12/16 00:14 Magnesium Hydroxide (Milk Of Magnesia Susp) 30 ml Q12H PRN PO 09/12/16 00:15 10/12/16 00:14 Ondansetron HCl (Zofran Inj) 4 mg Q6H PRN IV 09/12/16 00:15 10/12/16 00:14 09/12/16 08:00 4 MG Nitroglycerin (Nitrostat Tab) 0.4 mg UD PRN SL 09/12/16 00:15 10/12/16 00:14 Morphine Sulfate (MoRPHine SULFATE INJ) 2 mg Q30M PRN IV 09/12/16 00:15 09/26/16 00:14 Polyethylene (Miralax Powder Packet) 17 gm DAILY PRN PO 09/12/16 00:15 10/12/16 00:14 Miscellaneous (Iv Fluids Completed) 1 ea PRN PRN N/A 09/12/16 00:45 09/12/17 00:44 Hydralazine HCl (HydrALAZINE INJ) 5 mg Q8H PRN IV. 09/12/16 01:00 10/12/16 00:59 09/12/16 01:39 5 MG Pravastatin Sodium (Pravachol Tab) 20 mg DAILY PO 09/13/16 09:00 10/13/16 08:59 Physical Exam Vital Signs Past 12 Hours Date Time Temp Pulse Resp B/P (MAP) Pulse Ox O2 Delivery O2 Flow Rate FiO2 09/12/16 12:00 36.6 50 19 165/73 (103) 97 Room Air 09/12/16 12:00 94 Room Air 09/12/16 08:00 93 Room Air 09/12/16 08:00 36.6 43 10 171/79 (109) 93 Room Air 09/12/16 04:00 36.7 56 17 151/63 (92) 97 Room Air 09/12/16 04:00 97 Room Air Constitutional: General Apperance: heathly-appearing Level of Distress: NAD Psychiatric: Mental Status: active & alert Head: normocephalic Eyes: EOM: EOMI ENMT: normal ENT inspection, hearing grossly normal Neck: supple, no masses Lungs: Respiratory effort: no dyspnea, good air movement Auscultation: breath sounds normal, no wheezing Cardiovascular: Heart Auscultation: RRR, no murmurs, no rubs, no gallops, bradycardia Peripheral Pulses: Bruits: none appreciated Abdomen: Bowel Sounds: normal Inspection & Palpation: soft, no tenderness, guarding & rebound, no masses Musculoskeletal: normal strength (5/5 throughout) Extremities: no edema Neurologic: Cranial Nerves: grossly intact Sensation: grossly intact Data Laboratory Results: Last 24 Hours Test 09/11/16 17:10 09/11/16 18:35 09/12/16 05:04 09/12/16 09:29 White Blood Count 9.44 K/uL 9.36 K/uL Red Blood Count 4.99 M/uL 4.63 M/uL Hemoglobin 14.8 g/dL 13.5 g/dL Hematocrit 42.3 % 39.7 % Mean Corpuscular Volume 84.8 fL 85.7 fL Mean Corpuscular Hemoglobin 29.7 pg 29.2 pg Mean Corpuscular Hemoglobin Concent 35.0 g/dl 34.0 g/dl Platelet Count 204 K/uL 199 K/uL Mean Platelet Volume 9.0 fL 8.6 fL Neutrophils (%) (Auto) 90.0 % 82.5 % Lymphocytes (%) (Auto) 5.5 % 9.4 % Monocytes (%) (Auto) 4.0 % 6.7 % Eosinophils (%) (Auto) 0.1 % 1.1 % Basophils (%) (Auto) 0.2 % 0.2 % Neutrophils # (Auto) 8.49 K/uL 7.72 K/uL Lymphocytes # (Auto) 0.52 K/uL 0.88 K/uL Monocytes # (Auto) 0.38 K/uL 0.63 K/uL Eosinophils # (Auto) 0.01 K/uL 0.10 K/uL Basophils # (Auto) 0.02 K/uL 0.02 K/uL RDW Standard Deviation 42.1 fL 43.2 fL RDW Coefficient of Variation 13.7 % 13.9 % Immature Granulocyte % (Auto) 0.2 % 0.1 % Immature Granulocyte # (Auto) 0.02 K/uL 0.01 K/uL Prothrombin Time 16.9 SECONDS 16.2 SECONDS Prothromb Time International Ratio 1.6 1.5 Sodium Level 141 mmol/L 142 mmol/L Potassium Level 3.6 mmol/L 3.5 mmol/L Chloride Level 107 mmol/L 110 mmol/L Carbon Dioxide Level 24 mmol/L 25 mmol/L Anion Gap 10.0 mmol/L 7.0 mmol/L Blood Urea Nitrogen 18 mg/dl 19 mg/dl Creatinine 1.10 mg/dl 1.20 mg/dl Est Creatinine Clear Calc Drug Dose 72.2 ml/min 65.8 ml/min Estimated GFR () 76.8 69.1 Estimated GFR (Non- 66.2 59.6 BUN/Creatinine Ratio 16.0 16.1 Random Glucose 136 mg/dl 104 mg/dl Calcium Level 8.5 mg/dl 8.4 mg/dl Total Bilirubin 0.8 mg/dl Direct Bilirubin 0.2 mg/dl Aspartate Amino Transf (AST/SGOT) 15 U/L Alanine Aminotransferase (ALT/SGPT) 27 U/L Alkaline Phosphatase 75 U/L Total Creatine Kinase 44 U/L Creatine Kinase MB 0.9 ng/ml Creatine Kinase MB Ratio 2.0 Troponin I < 0.015 ng/ml Total Protein 7.1 gm/dl Albumin 3.8 gm/dl Thyroid Stimulating Hormone (TSH) 1.910 uIu/ml Urine Color YELLOW Urine Appearance CLEAR Urine pH 8.0 Urine Specific [place] 1.017 Urine Protein NEG Urine Glucose (UA) NEG Urine Ketones NEG Urine Occult Blood NEG Urine Nitrite NEG Urine Bilirubin NEG Urine Urobilinogen NEG Urine Leukocyte Esterase NEG Magnesium Level 2.3 mg/dl EKG: Sinus bradycardia rate 51 bpm. Telemetry reviewed: Sinus bradycardia Assessment & Plan #1. Paroxysmal atrial fibrillation: He has a history of atrial fibrillation but on amiodarone appears to maintaining sinus rhythm fairly well. I have elected to continue it. #2. Sinus bradycardia: He does have sinus bradycardia, probably related to the amiodarone and to beta blockade. The amiodarone is maintaining sinus rhythm fairly well, the beta sue is useful for his cardiomyopathy. Unless he has symptoms related to the bradycardia reluctant to change his medications although we may be forced to. #3. 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 We have been treating him medically for it. He is on a reasonable dose of an TEO inhibitor and an acceptable dose of beta blockade. Thank You
[2016-09-12] MEDS ORDERED: TAMSULOSIN HCL 0.4 MG CAP PO SCH (21:00)
[2016-09-13 00:56] VITALS: O2SAT 96
[2016-09-13 04:06] VITALS: BP 148/73; PULSE 55; TEMP 37; O2SAT 93
[2016-09-13 07:17] VITALS: BP_SYST 153; BP_SYST 155; BP_SYST 162; BP_DIAS 71; BP_DIAS 74; BP_DIAS 78; PULSE 52; TEMP 36.9; O2SAT 95
[2016-09-13] MEDS: LISINOPRIL 10 MG TAB PO SCH (08:35)
[2016-09-13] MEDS: SERTRALINE HCL 100 MG TAB PO SCH (08:37)
[2016-09-13 08:50] LABS: INR 1.6 (0.9-1.1); PROTHROMBIN TIME (PATIENT) 17.3 SECONDS (9.0-12.0)
[2016-09-13] MEDS ORDERED: PRAVASTATIN SOD 40 MG TAB PO SCH (09:00)
[2016-09-13] MEDS ORDERED: METOPROLOL SUCC 50MG EXT REL TAB PO SCH (09:00)
[2016-09-13] MEDS ORDERED: AMIODARONE 200 MG TAB PO SCH (09:00)
[2016-09-13 11:27] VITALS: BP 159/75; PULSE 57; TEMP 36.6; O2SAT 93
[2016-09-13 16:02] VITALS: BP_SYST 155; BP_SYST 156; BP_SYST 171; BP_DIAS 70; BP_DIAS 74; BP_DIAS 77; PULSE 57; PULSE 58; TEMP 36.9; O2SAT 95
[2016-09-13] MEDS: WARFARIN SOD 2 MG TAB PO SCH (16:50)
--- NOTE | 2016-09-13 17:25 | Cardiology Follow-Up ---
Subjective Date of Service: Sep 13, 2016. Pt evaluation today including: conversation w/ patient, physical exam, lab review, review of studies, review of inpatient medication list, conversation w/ attending History of Present Illness This is a 75-year-old gentleman with a history of atrial fibrillation diagnosed somewhere around July 2013. He developed congestive heart failure and had moderate left ventricular dysfunction identified in August 2013. It was felt that his cardiomyopathy may be due to the atrial arrhythmia. We converted his rhythm on 09/13/2013, but had recurrence 09/30/2013 and was unaware of the change in rhythm. Since then he has had atrial fibrillation alternating with sinus rhythm and sinus bradycardia. A nuclear treadmill stress test on 01/19/2015 showed no evidence of ischemia, a trial of amiodarone was used around February 2015 and he has been taking 200 mg of 100 mg daily. That seemingly has maintained sinus rhythm, but he does have sinus bradycardia and is on a beta sue. An echocardiogram done 08/28/2016 shows a reduced ejection fraction of 35-40% with mild left ventricular dilatation. He presented here with dizziness and nausea, was noted to be bradycardic. His symptoms have improved substantially following admission. Social History Smoking Status: Unknown if Ever Smoked History of Alcohol Use: No Review of Systems Respiratory: + see HPI, + dyspnea on exertion Cardiac: No chest pain, No orthopnea, No PND, No edema, No palpitations Medications Cardiovascular: Item Value Date Time Amiodarone HCl 100 mg 09/14/16 0900 (Cordarone Tab) Q2D@0900/PO Amiodarone HCl 200 mg 09/13/16 0900 (Cordarone Tab) Q2D/PO 09/13/16 0836 Pravastatin Sodium 20 mg 09/13/16 0900 (Pravachol Tab) DAILY/PO 09/13/16 0835 Metoprolol 50 mg 09/13/16 0900 Succinate QAM/PO (Toprol Xl Tab) Warfarin Sodium 2 mg 09/12/16 1600 (Coumadin Tab) DAILY@1600/PO 09/13/16 1650 Lisinopril 10 mg 09/12/16 0900 (Zestril Tab) BID/PO 09/13/16 0835 Objective Vital Signs Past 12 Hours Date Time Temp Pulse Resp B/P (MAP) Pulse Ox O2 Delivery O2 Flow Rate FiO2 09/13/16 16:02 36.9 58 22 155/70 (98) 95 Room Air 57 171/77 (108) 57 156/74 (101) 09/13/16 12:05 Room Air 09/13/16 11:27 36.6 57 18 159/75 (103) 93 09/13/16 08:05 Room Air 09/13/16 07:17 36.9 52 18 153/71 (98) 95 155/74 (101) 162/78 (106) Last Recorded Weight-Kilograms: 91.700 Intake & Output 8-Hour Column 09/13/16 09/14/16 09/14/16 16:00 00:00 08:00 Intake Total 915 ml Output Total 300 ml Balance 615 ml 24-Hour Column 09/14/16 08:00 Intake Total 915 ml Output Total 300 ml Balance 615 ml Physical Exam Constitutional: General Apperance: heathly-appearing Level of Distress: NAD Lungs: Respiratory effort: no dyspnea, good air movement Auscultation: breath sounds normal, no wheezing Cardiovascular: Heart Auscultation: RRR, no murmurs, no rubs, no gallops, bradycardia Peripheral Pulses: Bruits: none appreciated Extremities: no edema Data Laboratory Results: Last 24 Hours Test 09/13/16 08:04 Prothrombin Time 17.3 SECONDS Prothromb Time International Ratio 1.6 Telemetry reviewed: Sinus rhythm and sinus bradycardia, heart rate has gradually increased off beta-blockade Assessment and Plan #1. Paroxysmal atrial fibrillation: He has a history of atrial fibrillation but on amiodarone appears to maintaining sinus rhythm fairly well so I have elected to continue it. #2. Sinus bradycardia: He does have sinus bradycardia, probably related to the amiodarone and to beta blockade. The amiodarone is maintaining sinus rhythm fairly well, the beta sue is useful for his cardiomyopathy. Unless he has symptoms related to the bradycardia reluctant to change his medications although we may be forced to. His presenting symptoms appear to be classic vertigo and I don't think related to bradycardia. I would recommend restarting his metoprolol and his outpatient dose. #3. 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 We have been treating him medically for it. He is on a reasonable dose of an TEO inhibitor and an acceptable dose of beta blockade. Thank You
[2016-09-13] MEDS ORDERED: AMIO0.1T PO (18:29)
[2016-09-13] MEDS ORDERED: WARF1TAB PO (18:29)
--- NOTE | 2016-09-13 18:34 | Discharge Instructions ---
Discharge Instructions Date of Service Sep 13, 2016. Admission Reason for Admission: Bradycardia, Dizziness Discharge Discharge Diagnosis / Problem: Beningn paroxysmal positional vertigo Discharge Goals Goal(s): Improve disease control, Diagnostic testing, Therapeutic intervention Activity Recommendations Activity Limitations: resume your previous activity Exercise/Sports Limitations: as tolerated Shower/Bathe: no limitations Driving or Machine Use: no driving until all vertigo symptoms are completely resolved . Instructions / Follow-Up Instructions / Follow-Up You were admitted with dizziness. You had testing which showed you dd NOT have a stroke. Your low heart rate is NOT the cause of your dizziness. Your symptoms greatly improved with doing Gregory maneuvers with PT. Please follow up with your PCP within 1-2 weeks. Please have your INR checked on Friday. Current Hospital Diet Patient's current hospital diet: AHA Diet (Heart Healthy) Discharge Diet Recommended Diet: AHA Diet (Heart Healthy) Procedures Procedures Performed: MRI brain MRA Brain and Neck Head CT Carotid Ultrasound Pending Studies Studies pending at discharge: no Laboratory Results Last 24 Hours Test 09/13/16 08:04 Prothrombin Time 17.3 SECONDS Prothromb Time International Ratio 1.6 Medical Emergencies . Who to Call and When: Medical Emergencies: If at any time you feel your situation is an emergency, please call 911 immediately. . Non-Emergent Contact Non-Emergency issues call your: Primary Care Provider you have recurrence of your dizziness, or for any other acute concerns. . . "Provider Documentation" section prepared by Malinda Dillon. . VTE Core Measure Inpt VTE Proph given/why not?: Warfarin (Coumadin)
[2016-09-13 19:03] VITALS: BP 156/74; PULSE 57; TEMP 36.9; O2SAT 95
--- NOTE | 2016-09-14 01:58 | Discharge Summary ---
Discharge Summary Date of Service Sep 13, 2016. 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 & FRIDAY for 30 Days (Medication details modified) Take an extra 1mg tab today 09/13/16 when you get home and then return to your usual home dose Continued Medications: Furosemide (Lasix) 20 Mg Tab 20 MG PO DAILY PRN for EDEMA, TAB Lisinopril (Zestril) 10 Mg Tab 10 MG PO BID, TAB Metoprolol Succinate (Metoprolol Succinate ER) 50 Mg Tabcr 50 MG PO QAM, #30 1 Refill Potassium Chloride (Micro-K Ext Rel) 10 Meq Capcr 10 MEQ PO DAILY PRN for ., CAP Pravastatin Sod (Pravastatin Sodium) 40 Mg Tab 20 MG PO DAILY PRN for . TAKE HALF OF A 40MG TABLET Sertraline (Zoloft) 100 Mg Tab 100 MG PO DAILY, TAB Tamsulosin Hcl (Flomax) 0.4 Mg Cap 0.4 MG PO HS Warfarin Sodium (Coumadin) 1 Mg Tab 2 MG PO 4XWK TAKE 2 MG ON FRI, ., ., SAT. Discontinued Medications: Amiodarone Hcl (Cordarone) 200 Mg Tab 400 MG PO Q2D, TAB Amiodarone Hcl (Cordarone) 200 Mg Tab 200 MG PO Q2D, TAB Meclizine Hcl (Meclizine Hcl) 25 Mg Tab 1 TAB PO TID PRN for Dizziness or Vertigo for 10 Days, #30 TAB Ondasetron Odt (Zofran Odt) 4 Mg Tab 4 MG SL Q6H for Nausea, #6 TAB Discharge Exam Review of Systems: Constitutional: No problem reported Eyes: No problem reported ENT: No problem reported Respiratory: No problem reported Cardiovascular: No problem reported Abdomen: No problem reported Musculoskeletal: No problem reported Genitourinary - Male: No problem reported Neurologic: No problem reported Psychiatric: No problem reported Endocrine: No problem reported Hematologic / Lymphatic: No problem reported Integumentary: No problem reported Physical Exam: General Appearance: WD/WN, no apparent distress Eyes: normal inspection, sclerae normal ENT: hearing grossly normal, pharynx normal Neck: no adenopathy, trachea midline Respiratory/Chest: lungs clear, normal breath sounds, no respiratory distress, no accessory muscle use Cardiovascular: no edema, no gallop, no murmur, normal peripheral pulses, + bradycardia (with regular rhythm) Abdomen / GI: normal bowel sounds, non tender, soft Extremities: normal inspection, no calf tenderness, no pedal edema Neurologic/Psychiatric: alert, normal mood/affect, oriented x 3 Skin: normal color, warm/dry, no rash Hospital Course 75 y/o M Hx chronic systolic nonischemic CHF (LVEF 35-40% in 02/2015), PAF on AC with coumadin, mild MR, HTN, HL, 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 Presents with dizziness and nausea x 1 day. Had an elevated BP on arrival. Denies CP, SOB, vomiting, dysuria or fevers. Pts HR noted to be in the mid 40s- 50s. He is taking both Metoprolol and Amio for PAF. He takes Coumadin as well , although his INR is subtherapeutic on admission. 1) Dizziness and nausea,Vertigo - concern initially was that this was related to bradycardia vs CVA - and Pt's B-sue was held. MRI brain neg for CVA. MRA and Carotid US negative. This is likely BPPV based on history and exam and ruling out of CVA. Improved today with meclizine and then significantly improved with Gregory maneuvers by PT -Cardiology consult appreciated-no changes to meds 2) PAF,Nonischemic likely rate-related CM, Chronic sys CHF, HTN, HL - sinus wayne on arrival - monitor on telemetry as B sue held. Additional dose of Coumadin provided as INR was 1.6 on arrival. 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 Discharge Instructions Please refer to the electronic Patient Visit Report (Discharge Instructions) for additional information. Follow-Up PCP within 1 week Check INR in 3 days Additional Copies To Blane Salter M.D.
[2016-09-14] MEDS ORDERED: AMIODARONE 200 MG TAB PO SCH (09:00)
--- NOTE | 2016-09-17 10:55 | CODING QUERY MEDICAL NECESSITY ---
SUPPORTING DIAGNOSIS NEEDED Dr. Dillon, A supporting diagnosis is required for the test/procedure performed on this patient in order for us to be reimbursed by the patient's insurance. Please provide a supporting diagnosis for the following test/procedure listed below next to the test name along with your signature. *If there is no additional diagnosis for this patient that would support the following test/procedure please document that below next to the test/procedure. Test(s)/Procedure(s) that require a supporting diagnosis: * ([id number]) CANALITH REPOSITIONING PROC DIAGNOSIS: DATE OF SERVICE: 09/12/16 Provider Signature: Date: Thank you Jean Paul [facility] Information Management Once completed, please kindly fax back to [phone] For questions please call [phone]
--- NOTE | 2016-09-17 10:57 | EDITING REQUIRED CODING QUERY ---
SUPPORTING DIAGNOSIS NEEDED Dr. Dillon, A supporting diagnosis is required for the test/procedure performed on this patient in order for us to be reimbursed by the patient's insurance. Please provide a supporting diagnosis for the following test/procedure listed below next to the test name along with your signature. *If there is no additional diagnosis for this patient that would support the following test/procedure please document that below next to the test/procedure. Test(s)/Procedure(s) that require a supporting diagnosis: * ([id number]) CANALITH REPOSITIONING PROC DIAGNOSIS: Benign Paroxysmal Positional Vertigo (BPPV) DATE OF SERVICE: 09/12/16 Provider Signature: _Malinda Dillon M.D. Date: _09/23/16_ Thank you Jean Paul [facility] Information Management Once completed, please kindly fax back to [phone] For questions please call [phone]
--- NOTE | 2016-09-30 09:19 | CODING QUERY MEDICAL NECESSITY ---
CQSUPPORTING DIAGNOSIS NEEDED A supporting diagnosis is required for the test/procedure performed on this patient in order for us to be reimbursed by the patient's insurance. Please provide a supporting diagnosis for the following test/procedure listed below next to the test name along with your signature. *If there is no additional diagnosis for this patient that would support the following test/procedure please document that below next to the test/procedure. Test(s)/Procedure(s) that require a supporting diagnosis: RADHA 09/16/16 [facility] Provider Signature: Date: Thank you Sharon Gale [facility] Information Management Once completed, please kindly fax back to [phone] For questions please call [phone]
== END 2016-09-13 19:39 | disposition home or self-care (01) ==
LOC: C.EDB 16:03 → C.MSICU 09-12 00:18 → ENRESERV 09-12 00:47 → EDBEDREQ 09-12 14:53 → ENRESERV 09-12 14:53 → C.2T 09-12 15:16
PROVIDERS: ADMIT Internal Medicine; ATTEND Family Medicine
DX: H81.10 Benign paroxysmal vertigo, unspecified ear (principal); I11.0 Hypertensive heart disease with heart failure; I50.22 Chronic systolic (congestive) heart failure; I48.0 Paroxysmal atrial fibrillation; I42.9 Cardiomyopathy, unspecified; F32.9 Major depressive disorder, single episode, unspecified; N40.0 Benign prostatic hyperplasia without lower urinary tract symptoms; I34.0 Nonrheumatic mitral (valve) insufficiency; Z79.01 Long term (current) use of anticoagulants; Z87.891 Personal history of nicotine dependence; Z82.49 Family history of ischemic heart disease and other diseases of the circulatory system; I65.22 Occlusion and stenosis of left carotid artery; R42 Dizziness and giddiness

== ENCOUNTER → 2017-02-12 | Outpatient (CLI) | payer OTHER ==
[~2017-02-12] MED LIST changes: +AMIO0.1T PO; -ASMIN INH; -CRD200 PO; +FURO-85 PO; -IPRA1AER2 INH; +LISI-461 PO; -LSX20 PO; +POTA10CA28 PO; -POTA10TA PO
[2017-02-12 12:53] LABS: THYROID STIMULATING HORMONE 3.34 uIu/ml (0.300-4.500)
== END | disposition home or self-care (01) ==
LOC: C.LAB1850 10:35
PROVIDERS: ATTEND Internal Medicine Cardiovascular Disease
DX: Z79.899 Other long term (current) drug therapy (principal)

== ENCOUNTER 2024-05-06 03:03 | Inpatient (IN) ==
[2024-05-06 03:28] LABS: Basophils # (auto) 0.06 K/uL (0.00-0.20); Basophils % (auto) 0.5 %; Eosinophils # (auto) 0.18 K/uL (0.00-0.50); Eosinophils % (auto) 1.6 %; Hematocrit (blood only) 44.5 % (42.0-52.0); Hemoglobin 14.9 g/dl (14.0-18.0); Immature Granulocytes # (auto) 0.05 K/uL (0.01-0.20); Immature Granulocytes % (auto) 0.4 %; Lymphocytes # (auto) 1.66 K/uL (1.20-3.40); Lymphocytes % (auto) 14.7 %; Mean Corpuscular Hemoglobin 29.8 pg (25.0-34.0); Mean Corpuscular Hgb Conc 33.5 g/dL (32.0-36.0); Monocytes # (auto) 0.64 K/uL (0.11-0.59); Monocytes % (auto) 5.7 %; Neutrophils # (auto) 8.71 K/uL (1.40-6.50); Neutrophils % (auto) 77.1 %; Platelet Count 259 K/uL (130-400); RDW Standard Deviation 45.1 fL (36.4-46.3)
[2024-05-06 03:46] LABS: Albumin Globulin Ratio 1.5 (0.9-2); Albumin Level 4.2 gm/dl (3.4-5.0); Bilirubin,Total 0.6 mg/dl (0.2-1.0); Calcium 8.7 mg/dl (8.6-10.3); Creatinine Clr Calc Pharmacy 48.1 ml/min; Globulin 2.8 gm/dl (2.5-4.0); Potassium 4.3 mmol/L (3.5-5.1)
[2024-05-06] MEDS: FUROSEMIDE 40 MG/4 ML VIAL IV ONE (03:49)
[2024-05-06 03:52] LABS: Troponin I High Sensitivity 13.4 pg/ml (0-20)
--- NOTE | 2024-05-06 04:26 | XRay Report ---
EXAM: XR chest 1V portable CLINICAL HISTORY: Dyspnea TECHNIQUE: An X-ray image of the chest is obtained in AP projection. COMPARISON: comparison with the previous study dated 04/30/2024. FINDINGS: Pulmonary Parenchyma: Evidence of right lower lung zone air space filling opacity denoting an ongoing infectious process. Left retero-cardiac opacity which may represent hiatus hernia. Bilateral perihilar prominent vasculature suggesting lung congestion. No evidence of pleural effusion or pleural thickening. Heart and Mediastinum: Heart size can not be assessed due to the AP projection. No mediastinal widening or masses. No hilar or mediastinal lymphadenopathy. Bony Thorax: The bony thorax appears intact without fractures or deformities. Soft Tissues: Soft tissues overlying the chest wall are unremarkable. IMPRESSION: Evidence of right lower lung zone air space filling opacity denoting an ongoing infectious process.(new finding) Left retero-cardiac opacity which may represent hiatus hernia.(stable) Bilateral perihilar prominent vasculature suggesting lung congestion.(stable) Electronically signed by Bal Herrera 05-06-2024 04:25 AM
[2024-05-06] MEDS ORDERED: AMPICILLIN/SULBACTAM SOD 3,000 MG/100 ML BAG IV STA (04:47)
[2024-05-06] MEDS ORDERED: ALBUT/IPRATROP 3MG/0.5MG NEB 3 ML VIAL NEB PRN (04:50)
[2024-05-06] MEDS ORDERED: VANCOMYCIN CONSULT ACTIVE PRN (04:50)
--- NOTE | 2024-05-06 04:57 | History & Physical Report ---
Date of Service May 06, 2024 Assessment & Plan (1) Acute respiratory failure with hypoxia: (2) Right lower lobe pneumonia: (3) Pulmonary edema: (4) Persistent atrial fibrillation: (5) Atrial fibrillation status post cardioversion: (6) Anticoagulant long-term use: Plan The patient is an 83-year-old male with a past medical history including persistent atrial fibrillation, mitral regurgitation, chronic Justice lesion, CKD stage III, anemia, benign essential tremor, BPH with LUTS, long-term anticoagulant use, mild COPD, cardiomyopathy, dyslipidemia, chronic amiodarone therapy, PTSD, Parkinson's disease, and hypertension.The patient underwent a synchronized cardioversion with 200 J yesterday morning, had done well throughout the day, and then about 1030 last evening family reports that he became short of breath with dyspnea on exertion, and they brought him to the em ergency department for assessment. He did eat 3 full meals yesterday, did not have any issues with nausea vomiting, reports normal bowel and urine function, and denies any issues with speech, confusion, swallowing, focal weakness in arms or legs. In the emergency department, workup included a chest x-ray which showed right lower lobe pneumonia and effusion. From the ED patient received the following: Furosemide 40 mg IV, Unasyn 3 g IV, and DuoNeb treatment. [facility] of [facility]F and probable aspiration pneumonia. #Acute respiratory failure with hypoxia/healthcare associated pneumonia right lower lobe/pulmonary edema- Suspect secondary to aspiration associated with cardioversion Vancomycin IV per pharmacokinetic monitoring Zosyn 4.5 g IV every 8 hours DuoNebs every 2 hours as needed Mucinex 600 mg by mouth every 12 hours MRSA swab Respiratory BioFire test added #Pulmonary edema/pleural effusion/paroxysmal atrial fibrillation status post cardioversion/cardiomyopathy/chronic amiodarone therapy/hypertension- Given furosemide 40 mg IV x 1 in the ED, will continue IV every morning, assessing response for further dosing Continue amiodarone 200 mg every morning, amlodipine 5 mg every morning, apixaban 5 mg p.o. twice daily, carvedilol 12.5 mg p.o. twice daily Hold lisinopril 40 mg every morning Status post cardioversion morning of 05/05. Presently in normal sinus rhythm with occasional PVCs Most recent echocardiogram 02/03/2024 with ejection fraction 40-45%, moderate mitral regurgitation #Chronic medical conditions: BPH with LUTS-tamsulosin 0.4 mg at bedtime Hyperlipidemia-pravastatin 40 mg in the morning GERD-pantoprazole 20 mg every morning Anxiety/depression-sertraline 100 mg in the morning Iron deficiency anemia-continue ferrous sulfate 325 mg twice daily CODE STATUS: Full code History of Present Illness Chief Complaint: The patient underwent a synchronized cardioversion with 200 J yesterday morning, had done well throughout the day, and then about 1030 last evening family reports that he became short of breath with dyspnea on exertion, and they brought him to the emergency department for assessment. He did eat 3 full meals yesterday, did not have any issues with nausea vomiting, reports normal bowel and urine function, and denies any issues with speech, confusion, swallowing, focal weakness in arms or legs. Primary Care Provider: Ruby Wong DO The patient is an 83-year-old male with a past medical history including persistent atrial fibrillation, mitral regurgitation, chronic Justice lesion, CKD stage III, anemia, benign essential tremor, BPH with LUTS, long-term anticoagulant use, mild COPD, cardiomyopathy, dyslipidemia, chronic amiodarone therapy, PTSD, Parkinson's disease, and hypertension.The patient underwent a synchronized cardioversion with 200 J yesterday morning, had done well throughout the day, and then about 1030 last evening family reports that he became short of breath with dyspnea on exertion, and they brought him to the emergency department for assessment. He did eat 3 full meals yesterday, did not have any issues with nausea vomiting, reports normal bowel and urine function, and denies any issues with speech, confusion, swallowing, focal weakness in arms or legs. Allergies Allergy/AdvReac Type Severity Reaction Status Date / Time No Known Allergies Allergy Verified 04/26/24 09:45 Home Medications Medication Instructions Recorded Confirmed Type amlodipine 5 mg tablet 5 mg PO QAM #30 tabs 12/14/18 05/06/24 History lisinopril 40 mg tablet 40 mg PO QAM #90 tabs 12/14/18 05/06/24 History sertraline 100 mg tablet 100 mg PO QAM 12/14/18 05/06/24 History tamsulosin 0.4 mg capsule 0.4 mg PO HS 12/14/18 05/06/24 History apixaban 5 mg tablet (Eliquis) 5 mg PO BID 11/02/19 02/27/25 History ferrous sulfate 325 mg (65 mg 325 mg PO BID 10/14/23 05/06/24 History iron) tablet amiodarone 200 mg tablet 200 mg PO QAM 04/26/24 05/06/24 History carvedilol 25 mg tablet 12.5 mg PO BID 04/26/24 05/06/24 History pantoprazole 20 mg tablet,delayed 20 mg PO QAM 04/26/24 05/06/24 History release pravastatin 40 mg tablet 40 mg PO QAM 04/26/24 05/06/24 History Past Med/Surg History Problem List (Updated 05/06/24 @ 05:36 by Daljit Vale MD) Atrial fibrillation status post cardioversion Acute respiratory failure with hypoxia Right lower lobe pneumonia (Acute) Pulmonary edema (Acute) Hypoxia (Acute) Persistent atrial fibrillation Encounter for pre-operative examination Mitral regurgitation Cerumen impaction Elevated TSH Justice lesion, chronic CKD (chronic kidney disease), stage III Anemia Paroxysmal atrial fibrillation f/u yong phillips Benign essential tremor (Acute) Benign prostatic hyperplasia (Acute) Anticoagulant long-term use Cardiomyopathy (Chronic) Dyslipidemia (Chronic) On amiodarone therapy (Chronic) Parkinsons disease (Chronic) Post traumatic stress disorder (Chronic) Hypertension (Chronic) Medical History (Updated 05/06/24 @ 05:36 by Daljit Vale MD) History of pneumonia 04/01/24, symptoms are "almost fully resolved"; no covid or flu testing per Mediastinal adenopathy pt unaware of this History of cardioversion "years ago," [facility] Chronic Justice lesion hx PTSD (post-traumatic stress disorder) Parkinsons disease On amiodarone therapy Mitral valve insufficiency f/u y[facility] cardio Hx of cardiomyopathy Hypertension Dyslipidemia COPD, mild "lung dr released him from this diagnosis, his lungs are pretty clear" CKD (chronic kidney disease), stage III hx, unsure of current status BPH (benign prostatic hyperplasia) Benign essential tremor hx Anticoagulant long-term use History of anemia Benign paroxysmal positional vertigo no recent issues per and pt. Multinodular goiter Atrial fibrillation with RVR f/u yong phillips Surgical History History of esophagogastroduodenoscopy (EGD) History of tonsillectomy and adenoidectomy as child History of colonoscopy Through [facility] in 2009 Family History Brother Alcoholism Mother COPD (chronic obstructive pulmonary disease) Sister Diabetes Father Myocardial infarction Denies family history of Ovarian cancer Prostate cancer Breast cancer Lung cancer Colorectal cancer Stroke Social History Smoking Status: Former smoker Tobacco Type: Cigarettes Age Started Using Tobacco: 19; Age Quit Using Tobacco: 25; packs per day: 1; Second Hand Exposure: Yes (hx growing up); Do You Dip or Chew Tobacco: No; Hx Alcohol Use: No Hx Substance Use: No Preferred Language: Polish Communication Ability: Effective Visual Impairment: Limited Hearing Ability: Use of Hearing Aid Showroom Salesperson Required: No Beliefs That Will Affect Care: None marital status: Current Living Situation: Spouse Current Living Situation Comment: lives with current occupational status: retired How many Children do You have: 3 Feels Safe at Home: Yes Childhood Exposure to Second-Hand Smoke: Yes caffeine: No Dental Care, Regularly: Yes Physical Activity Frequency: Daily Seatbelt Use: always Sunscreen Use: Yes Assistive Devices: Cane, Denture - Upper, Denture - Lower, Glasses and Hearing Aid - Bilateral Review of Systems Review of Systems: The patient denies chest pain, palpitations, lower extremity swelling, sore throat, fevers, chills, sweats, nausea, vomiting, diarrhea , constipation, abdominal pain, pelvic pain, blood in urine or stool, dysuria, urinary frequency or urgency, lightheadedness, dizziness, loss of consciousness, rash, abnormal bruising or bleeding, imbalance, focal weakness, numbness or tingling in arms or legs, generalized arthralgias or myalgias, back or neck pain, or night sweats. The review of systems is otherwise negative other than for that already noted above, and at least 10 systems have been reviewed. Physical Exam Physical Exam: The patient is awake, alert and oriented 3, well developed and well nourished, normocephalic and atraumatic, lying in bed and in no acute distress. HEENT--PERRL, EOMI, mucous membranes and oropharynx mildly dry. Neck--supple. No JVD. No bruits. Thyroid normal, trachea midline, no adenopathy. Heart--normal S1 and S2. No murmurs, rubs or gallops. Lungs--coarse breath sounds right base greater than left. No respiratory distress, no accessory muscle use. Abdomen--normal bowel sounds and soft. Nontender. Nondistended. Extremities--no cyanosis or clubbing. No edema. Dermatologic--normal skin turgor, normal color, no abnormal lymph nodes, no rash. Neurologic--cranial nerves II through XII grossly intact. Rheumatologic--normal range of motion. Psychiatric--normal affect. Results & Data Results & Data Vital Signs (Past 12 Hours) Vital Signs Temp Pulse Pulse Resp BP BP Pulse Ox 05/06/24 04:13 93 05/06/24 03:32 56 L 28 H 120/59 L 92 05/06/24 03:20 92 05/06/24 03:09 59 L 05/06/24 03:09 36.4 C L 63 26 H 130/70 92 O2 Del Method O2 Flow Rate 05/06/24 04:13 Nasal Cannula 5 05/06/24 03:32 Nasal Cannula 5 05/06/24 03:20 Room Air 05/06/24 03:09 05/06/24 03:09 Nasal Cannula 5 Laboratory Results Laboratory Results WBC 11.30 K/ul (4.8-10.8) H 05/06/24 03:15 RBC 5.00 M/uL (4.70-6.10) 05/06/24 03:15 Hgb 14.9 g/dl (14.0-18.0) 05/06/24 03:15 Hct 44.5 % (42.0-52.0) 05/06/24 03:15 MCV 89.0 fL (80.0-100.0) 05/06/24 03:15 MCH 29.8 pg (25.0-34.0) 05/06/24 03:15 MCHC 33.5 g/dL (32.0-36.0) 05/06/24 03:15 RDW Std Deviation 45.1 fL (36.4-46.3) 05/06/24 03:15 RDW Coeff of Kellen 14.0 % (11.5-14.5) 05/06/24 03:15 Plt Count 259 K/uL (130-400) 05/06/24 03:15 MPV 9.0 fL (9.4-12.4) L 05/06/24 03:15 Immature Gran % (Auto) 0.4 % 05/06/24 03:15 Neut % (Auto) 77.1 % 05/06/24 03:15 Lymph % (Auto) 14.7 % 05/06/24 03:15 Montgomery % (Auto) 5.7 % 05/06/24 03:15 Eos % (Auto) 1.6 % 05/06/24 03:15 Baso % (Auto) 0.5 % 05/06/24 03:15 Neut # (Auto) 8.71 K/uL (1.40-6.50) H 05/06/24 03:15 Lymph # (Auto) 1.66 K/uL (1.20-3.40) 05/06/24 03:15 Montgomery # (Auto) 0.64 K/uL (0.11-0.59) H 05/06/24 03:15 Eos # (Auto) 0.18 K/uL (0.00-0.50) 05/06/24 03:15 Baso # (Auto) 0.06 K/uL (0.00-0.20) 05/06/24 03:15 Immature Gran # (Auto) 0.05 K/uL (0.01-0.20) 05/06/24 03:15 Sodium 137 mmol/L (136-145) 05/06/24 03:15 Potassium 4.3 mmol/L (3.5-5.1) 05/06/24 03:15 Chloride 104 mmol/L (98-107) 05/06/24 03:15 Carbon Dioxide 27 mmol/L (21-32) 05/06/24 03:15 Anion Gap 6 (3-11) 05/06/24 03:15 BUN 34 mg/dl (6-23) H 05/06/24 03:15 Creatinine 1.26 mg/dl (0.6-1.4) 05/06/24 03:15 Est Cr Clr Drug Dosing 48.1 ml/min 05/06/24 03:15 eGFR 57.30 05/06/24 03:15 BUN/Creatinine Ratio 27.0 (10-20) H 05/06/24 03:15 Glucose 161 mg/dl (70-99(Fasting)) H 05/06/24 03:15 Calcium 8.7 mg/dl (8.6-10.3) 05/06/24 03:15 Total Bilirubin 0.6 mg/dl (0.2-1.0) 05/06/24 03:15 AST 17 U/L (13-39) 05/06/24 03:15 ALT 21 U/L (7-52) 05/06/24 03:15 Alkaline Phosphatase 74 U/L (34-104) 05/06/24 03:15 Troponin I High Sens 13.4 pg/ml (0-20) 05/06/24 03:15 Total Protein 7.0 gm/dl (6.0-8.3) 05/06/24 03:15 Albumin 4.2 gm/dl (3.4-5.0) 05/06/24 03:15 Globulin 2.8 gm/dl (2.5-4.0) 05/06/24 03:15 Albumin/Globulin Ratio 1.5 (0.9-2) 05/06/24 03:15 Impressions Chest X-Ray 05/06/24 03:15 EXAM: XR chest 1V portable CLINICAL HISTORY: Dyspnea TECHNIQUE: An X-ray image of the chest is obtained in AP projection. COMPARISON: comparison with the previous study dated 04/30/2024. FINDINGS: Pulmonary Parenchyma: Evidence of right lower lung zone air space filling opacity denoting an ongoing infectious process. Left retero-cardiac opacity which may represent hiatus hernia. Bilateral perihilar prominent vasculature suggesting lung congestion. No evidence of pleural effusion or pleural thickening. Heart and Mediastinum: Heart size can not be assessed due to the AP projection. No mediastinal widening or masses. No hilar or mediastinal lymphadenopathy. Bony Thorax: The bony thorax appears intact without fractures or deformities. Soft Tissues: Soft tissues overlying the chest wall are unremarkable. IMPRESSION: Evidence of right lower lung zone air space filling opacity denoting an ongoing infectious process.(new finding) Left retero-cardiac opacity which may represent hiatus hernia.(stable) Bilateral perihilar prominent vasculature suggesting lung congestion.(stable) Electronically signed by Bal Herrera 05-06-2024 04:25 AM Code Status & VTE Plan Code Status Full code VTE Prophylaxis Plan VTE Prophylaxis will be ordered: Yes PG Care Time/CCT Total # of Minutes Spent Total Time Spent with Patient: Total time spent is greater than 50% in coordination of care (as documented) at patient's floor/unit and/or counseling patient: Coding Level of Care Code 01623 INT INP/OBS CARE 3/75MIN Diagnoses Acute respiratory failure with hypoxia J96.01 Right lower lobe pneumonia J18.9 Pulmonary edema J81.1 Persistent atrial fibrillation I48.19 Atrial fibrillation status post cardioversion I48.91 Anticoagulant long-term use Z79.01
--- NOTE | 2024-05-06 05:30 | Emergency Department Note ---
Impression & Plan Hypoxia, Pulmonary edema, Right lower lobe pneumonia admit to the [facility] ED Provider Note NAME: STEVE ARAMBULA AGE: 83 SEX: Male INFORMANT: Patient and his ED PROVIDER(S): Mireya Graf DO CHIEF COMPLAINT: shortness of breath PLAN: Disposition: admit to the [facility] team MEDICAL DECISION MAKING: this is a an 83-year-old male patient who underwent cardiac ablation yesterday here at this hospital. He was discharged home and was feeling well until last evening when he seemed to be breathing abnormally according to his . However, he still went to bed but awoke very suddenly feeling extremely short of breath. EMS was called to the home and found his O2 saturations to be in the 60s. Chest x-ray shows evidence of pulmonary vascular congestion with what appears to be an opacity in the right lung base. Laboratory studies reveal leukocytosis with a white count of 16.3. BUN was elevated at 34 and creatinine was 1.62. Glucose was 161. Troponin was unremarkable. On physical exam, the patient has rales bilaterally and breath sounds were diminished at both bases. Patient was treated with IV Lasix and IV Unasyn after blood cultures were obtained. I contacted the possibility that the patient may have aspirated while sleeping and awoke suddenly gasping for breath. [facility] for [facility] care. Care/management discussed with: manager dish and [facility] Triage Nursing notes: reviewed and agree with them. Vital Signs: reviewed and remarkable for bradycardia Differential Diagnosis: CHF, PE, aspiration pneumonia, community-acquired pneumonia, Diagnostics, independently interpreted by me: ECG: Sinus bradycardia at a rate of 56 with first-degree AV block and PVCs. Cardiac Monitoring: Sinus bradycardia at 58 Imaging studies: portable chest x-ray: Evidence of pulmonary edema with probable opacity in the right lung base suggesting possible aspiration HPI: 83 year old Male arrives for evaluation of shortness of breath. patient woke from sleep feeling suddenly short of breath. patient had a cardiac ablation performed yesterday. he did well following this but before sleep last night, his thought he was breathing abnormally. He awoke very suddenly from sleep feeling extremely short of breath as he tried to walk to the bathroom. PAST MEDICAL HISTORY: See Below, PAST SURGICAL HISTORY: See Below, SOCIAL HISTORY: See Below, HOME MEDICATIONS: See list ALLERGIES: none VITALS: See Below PHYSICAL EXAMINATION: HEENT: Head - normocephalic and atraumatic. Pupils are equal, round, and reactive to light. Extraocular eye muscles are intact, and sclera are anicteric. Nose - moist nasal mucosa without discharge. Mouth - moist buccal mucosa. Oropharynx is nonerythematous and there is no tonsillar exudate or edema noted. Neck: Supple; no JVD, nuchal rigidity, cervical lymphadenopathy, or auscultated bruits. Heart: Bradycardic rate and regular rhythm. There is a normal S1 and S2 with no murmurs, clicks, or gallops appreciated. Lungs: Diminished breath sounds in both lung bases Abdomen: Soft, completely nontender, nondistended, with good bowel sounds. There are no palpable pulsatile masses or hepatosplenomegaly. There is no guarding, rigidity, or rebound noted. Extremities: No evidence of cyanosis, clubbing, or edema. There are easily palpable peripheral pulses. Skin: warm and dry with good turgor and no rashes. emergency department treatment: satellite project site monitor, supplemental oxygen, IV Lasix, IV Unasyn Emergency Department course: The patient was evaluated in room B-2. A complete history and physical was performed. Laboratory studies were drawn as above. Twelve-lead EKG was obtained as described above. An order was placed for continuous cardiac monitoring. The patient was in a sinus bradycardia at a rate of 56. I have personally spent greater than 45 minutes of critical care time in the direct management of this patient. This includes bedside care, interpretation of diagnostic studies, and testing, discussion with consultants, patient, and family members, and other required patient management activities. This 45 minutes is in excess of all separately billable procedures. Past Med/Surg History Problem List (Updated 05/06/24 @ 05:36 by Daljit Vale MD) Atrial fibrillation status post cardioversion Acute respiratory failure with hypoxia Right lower lobe pneumonia (Acute) Pulmonary edema (Acute) Hypoxia (Acute) Persistent atrial fibrillation Encounter for pre-operative examination Mitral regurgitation Cerumen impaction Elevated TSH Justice lesion, chronic CKD (chronic kidney disease), stage III Anemia Paroxysmal atrial fibrillation f/u yong phillips Benign essential tremor (Acute) Benign prostatic hyperplasia (Acute) Anticoagulant long-term use Cardiomyopathy (Chronic) Dyslipidemia (Chronic) On amiodarone therapy (Chronic) Parkinsons disease (Chronic) Post traumatic stress disorder (Chronic) Hypertension (Chronic) Medical History (Updated 05/06/24 @ 05:36 by Daljit Vale MD) History of pneumonia 04/01/24, symptoms are "almost fully resolved"; no covid or flu testing per Mediastinal adenopathy pt unaware of this History of cardioversion "years ago," [facility] Chronic Justice lesion hx PTSD (post-traumatic stress disorder) Parkinsons disease On amiodarone therapy Mitral valve insufficiency f/u yong graves cardio Hx of cardiomyopathy Hypertension Dyslipidemia COPD, mild "lung dr released him from this diagnosis, his lungs are pretty clear" CKD (chronic kidney disease), stage III hx, unsure of current status BPH (benign prostatic hyperplasia) Benign essential tremor hx Anticoagulant long-term use History of anemia Benign paroxysmal positional vertigo no recent issues per and pt. Multinodular goiter Atrial fibrillation with RVR f/u yong phillips Surgical History History of esophagogastroduodenoscopy (EGD) History of tonsillectomy and adenoidectomy as child History of colonoscopy Through [facility] in 2009 Family History Brother Alcoholism Mother COPD (chronic obstructive pulmonary disease) Sister Diabetes Father Myocardial infarction Denies family history of Ovarian cancer Prostate cancer Breast cancer Lung cancer Colorectal cancer Stroke Social History Smoking Status: Former smoker Tobacco Type: Cigarettes Age Started Using Tobacco: 19; Age Quit Using Tobacco: 25; packs per day: 1; Second Hand Exposure: Yes (hx growing up); Do You Dip or Chew Tobacco: No; Hx Alcohol Use: No Hx Substance Use: No Preferred Language: Grenadian Communication Ability: Effective Communication Ability Comment: Needs reading glasses, family reports will bring glasses in tonight Visual Impairment: Limited Hearing Ability: Use of Hearing Aid Revenue Inspector Required: No Beliefs That Will Affect Care: None marital status: Current Living Situation: Spouse Current Living Situation Comment: lives with current occupational status: retired How many Children do You have: 3 Feels Safe at Home: Yes Childhood Exposure to Second-Hand Smoke: Yes caffeine: No Dental Care, Regularly: Yes Physical Activity Frequency: Daily Seatbelt Use: always Sunscreen Use: Yes Assistive Devices: Cane, Denture - Upper, Denture - Lower and Hearing Aid - Bilateral Allergies Allergies Allergy/AdvReac Type Severity Reaction Status Date / Time No Known Allergies Allergy Verified 04/26/24 09:45 Home Meds Home Medications Medication Instructions Recorded Confirmed amlodipine 5 mg tablet 5 mg PO QAM #30 tabs 12/14/18 05/06/24 lisinopril 40 mg tablet 40 mg PO QAM #90 tabs 12/14/18 05/06/24 sertraline 100 mg tablet 100 mg PO QAM 12/14/18 05/06/24 tamsulosin 0.4 mg capsule 0.4 mg PO HS 12/14/18 05/06/24 apixaban 5 mg tablet (Eliquis) 5 mg PO BID 01/09/19 05/06/24 ferrous sulfate 325 mg (65 mg 325 mg PO BID 10/14/23 05/06/24 iron) tablet amiodarone 200 mg tablet 200 mg PO QAM 04/26/24 05/06/24 carvedilol 25 mg tablet 12.5 mg PO BID 04/26/24 05/06/24 pantoprazole 20 mg tablet,delayed 20 mg PO QAM 04/26/24 05/06/24 release pravastatin 40 mg tablet 40 mg PO QAM 04/26/24 05/06/24 Results & Data (ED) Vital Signs Vital Signs - 24 hr 05/06/24 03:09 05/06/24 03:09 05/06/24 03:09 Temperature 36.4 C L Temperature Source Oral Pulse Rate 63 59 L Pulse Rate [Apical] Respiratory Rate 26 H Respiratory Effort / Characteristics Labored Short of Breath Respiratory Pattern Tachypnea Blood Pressure 130/70 Blood Pressure [Right Arm] Blood Pressure Mean 90 Blood Pressure Mean [Right Arm] Blood Pressure Position Semi-fowlers Blood Pressure Position [Right Arm] Pulse Oximetry 92 Oxygen Delivery Method Nasal Cannula Oxygen Flow Rate 5 Sepsis Recent Fever Within 48 Hours No Sepsis New/Unexplained Change in Mental Status N/A Sepsis Action Taken by Nursing No Action Required Oxygen Flow Rate - Titration Pulse Oximetry Post Tiitration 05/06/24 03:20 05/06/24 03:32 05/06/24 04:13 Temperature Temperature Source Pulse Rate Pulse Rate [Apical] 56 L Respiratory Rate 28 H Respiratory Effort / Characteristics Respiratory Pattern Blood Pressure Blood Pressure [Right Arm] 120/59 L Blood Pressure Mean Blood Pressure Mean [Right Arm] 79 Blood Pressure Position Blood Pressure Position [Right Arm] Semi-fowlers Pulse Oximetry 92 92 93 Oxygen Delivery Method Room Air Nasal Cannula Nasal Cannula Oxygen Flow Rate 5 5 Sepsis Recent Fever Within 48 Hours Sepsis New/Unexplained Change in Mental Status Sepsis Action Taken by Nursing Oxygen Flow Rate - Titration 4 Pulse Oximetry Post Tiitration 92 05/06/24 05:00 05/06/24 05:15 Temperature Temperature Source Pulse Rate Pulse Rate [Apical] 52 L 53 L Respiratory Rate 24 24 Respiratory Effort / Characteristics Respiratory Pattern Blood Pressure Blood Pressure [Right Arm] 140/76 113/71 Blood Pressure Mean Blood Pressure Mean [Right Arm] 97 85 Blood Pressure Position Blood Pressure Position [Right Arm] Semi-fowlers Semi-fowlers Pulse Oximetry 97 94 Oxygen Delivery Method Nasal Cannula Nasal Cannula Oxygen Flow Rate 4 4 Sepsis Recent Fever Within 48 Hours Sepsis New/Unexplained Change in Mental Status Sepsis Action Taken by Nursing Oxygen Flow Rate - Titration Pulse Oximetry Post Tiitration Laboratory Data 05/07/24 06:06 05/07/24 06:06 Lab Results 05/06/24 05/06/24 Range/Units 03:09 03:15 WBC 11.30 H (4.8-10.8) K/ul RBC 5.00 (4.70-6.10) M/uL Hgb 14.9 (14.0-18.0) g/dl Hct 44.5 (42.0-52.0) % MCV 89.0 (80.0-100.0) fL MCH 29.8 (25.0-34.0) pg MCHC 33.5 (32.0-36.0) g/dL RDW Std Deviation 45.1 (36.4-46.3) fL RDW Coeff of Kellen 14.0 (11.5-14.5) % Plt Count 259 (130-400) K/uL MPV 9.0 L (9.4-12.4) fL Immature Gran % (Auto) 0.4 % Neut % (Auto) 77.1 % Lymph % (Auto) 14.7 % [place] % (Auto) 5.7 % Eos % (Auto) 1.6 % Baso % (Auto) 0.5 % Neut # (Auto) 8.71 H (1.40-6.50) K/uL Lymph # (Auto) 1.66 (1.20-3.40) K/uL [place] # (Auto) 0.64 H (0.11-0.59) K/uL Eos # (Auto) 0.18 (0.00-0.50) K/uL Baso # (Auto) 0.06 (0.00-0.20) K/uL Immature Gran # (Auto) 0.05 (0.01-0.20) K/uL Sodium 137 (136-145) mmol/L Potassium 4.3 (3.5-5.1) mmol/L Chloride 104 (98-107) mmol/L Carbon Dioxide 27 (21-32) mmol/L Anion Gap 6 (3-11) BUN 34 H (6-23) mg/dl Creatinine 1.26 (0.6-1.4) mg/dl Est Cr Clr Drug Dosing 48.1 ml/min eGFR 57.30 BUN/Creatinine Ratio 27.0 H (10-20) Glucose 161 H (70-99(Fasting)) mg/dl Calcium 8.7 (8.6-10.3) mg/dl Total Bilirubin 0.6 (0.2-1.0) mg/dl AST 17 (13-39) U/L ALT 21 (7-52) U/L Alkaline Phosphatase 74 (34-104) U/L Troponin I High Sens 13.4 (0-20) pg/ml Total Protein 7.0 (6.0-8.3) gm/dl Albumin 4.2 (3.4-5.0) gm/dl Globulin 2.8 (2.5-4.0) gm/dl Albumin/Globulin Ratio 1.5 (0.9-2) Procalcitonin < 0.02 (0-0.5) ng/ml Administered Medications Amiodarone HCl (Amiodarone 200 Mg Tab) [facility] Stop: 06/05/24 08:59 Last Admin: 05/06/24 09:00 Dose: 200 mg Documented By: CAW Amlodipine Besylate (Amlodipine Besylate 5 Mg Tab) 5 mg PO QAM [facility] Stop: 06/05/24 08:59 Last Admin: 05/06/24 09:00 Dose: 5 mg Documented By: SHERIW Apixaban (Apixaban 5 Mg Tablet) 5 mg PO BID [facility] Stop: 06/05/24 08:59 Last Admin: 05/06/24 20:20 Dose: 5 mg Documented By: Admin: 05/06/24 09:00 Dose: 5 mg Documented By: SHERIW Carvedilol (Carvedilol 12.5 Mg Tab) 12.5 mg PO BID [facility] Stop: 06/05/24 08:59 Last Admin: 05/06/24 20:20 Dose: Not Given Documented By: [facility] Admin: 05/06/24 08:59 Dose: 12.5 mg Documented By: SKIP Ferrous Sulfate (Ferrous Sulfate 325 Mg Tab) 325 mg PO BID [facility] Stop: 06/05/24 08:59 Last Admin: 05/06/24 20:20 Dose: 325 mg Documented By: Admin: 05/06/24 08:59 Dose: 325 mg Documented By: SKIP Furosemide (Furosemide 40 Mg/4 Ml Vial) [facility] [place] Stop: 06/05/24 08:59 Last Admin: 05/06/24 09:01 Dose: 40 mg Documented By: SKIP Piperacillin Sod/Tazobactam Sod (Zosyn) 4.5 gm in 100 mls @ 25 mls/hr IV Q8H [facility]; Protocol Stop: 05/13/24 04:59 Last Infusion: 05/07/24 06:03 Dose: Infused Documented By: [facility] Admin: 05/07/24 01:55 Dose: 25 mls/hr Documented By: Infusion: 05/06/24 22:26 Dose: Infused Documented By: Admin: 05/06/24 18:07 Dose: 25 mls/hr Documented By: Infusion: 05/06/24 15:03 Dose: Infused Documented By: Admin: 05/06/24 10:56 Dose: 25 mls/hr Documented By: SHERIW Pantoprazole Sodium (Pantoprazole 40 Mg Tab) [facility] [place] Stop: 06/05/24 08:59 Last Admin: 05/06/24 09:00 Dose: 40 mg Documented By: SKIP Pravastatin Sodium (Pravastatin Sod 40 Mg Tab) [facility] [place] Stop: 06/05/24 08:59 Last Admin: 05/06/24 08:59 Dose: 40 mg Documented By: SHERIW Sertraline HCl (Sertraline Hcl 100 Mg Tablet) [facility] [place] Stop: 06/05/24 08:59 Last Admin: 05/06/24 08:59 Dose: 100 mg Documented By: SHERIW Tamsulosin HCl (Tamsulosin Hcl 0.4 Mg Cap) 0.4 mg PO [facility] Stop: 06/05/24 20:59 Last Admin: 05/06/24 20:20 Dose: 0.4 mg Documented By: DARIAN Discontinued Medications Furosemide (Furosemide 40 Mg/4 Ml Vial) 40 mg IV ONE ONE Stop: 05/06/24 03:47 Last Admin: 05/06/24 03:49 Dose: 40 mg Documented By: EMB Vancomycin HCl 1,750 mg/ (Sodium Chloride) 535 mls @ 200 mls/hr IV NOW ONE Stop: 05/06/24 07:40 Last Infusion: 05/06/24 09:09 Dose: Infused Documented By: Infusion: 05/06/24 06:33 Dose: 201 mls/hr Documented By: Infusion: 05/06/24 06:00 Dose: 0 mls/hr Documented By: CDClayton Admin: 05/06/24 05:56 Dose: 200 mls/hr Documented By: PROMISE Piperacillin Sod/Tazobactam Sod (Zosyn) 4.5 gm in 100 mls @ 200 mls/hr IV NOW STA Stop: 05/06/24 05:27 Last Infusion: 05/06/24 06:05 Dose: Infused Documented By: Admin: 05/06/24 05:31 Dose: 200 mls/hr Documented By: EMB Imaging Data Radiologist's Impression: Chest X-Ray 05/06/24 03:15 EXAM: XR chest 1V portable CLINICAL HISTORY: Dyspnea TECHNIQUE: An X-ray image of the chest is obtained in AP projection. COMPARISON: comparison with the previous study dated 04/30/2024. FINDINGS: Pulmonary Parenchyma: Evidence of right lower lung zone air space filling opacity denoting an ongoing infectious process. Left retero-cardiac opacity which may represent hiatus hernia. Bilateral perihilar prominent vasculature suggesting lung congestion. No evidence of pleural effusion or pleural thickening. Heart and Mediastinum: Heart size can not be assessed due to the AP projection. No mediastinal widening or masses. No hilar or mediastinal lymphadenopathy. Bony Thorax: The bony thorax appears intact without fractures or deformities. Soft Tissues: Soft tissues overlying the chest wall are unremarkable. IMPRESSION: Evidence of right lower lung zone air space filling opacity denoting an ongoing infectious process.(new finding) Left retero-cardiac opacity which may represent hiatus hernia.(stable) Bilateral perihilar prominent vasculature suggesting lung congestion.(stable) Electronically signed by Bal Herrera 05-06-2024 04:25 AM Discharge Plan Visit Data Chief Complaint: Shortness of Breath/Dyspnea Stated Complaint: SOB ED Provider: Mireya Graf Discharge Problem: Hypoxia, Pulmonary edema, Right lower lobe pneumonia Patient Disposition: Admitted As Inpatient Discharge Instructions Interventions: ED Discharge Assessment Last Done: 05/06/24 11:04
[2024-05-06] MEDS: PIPERACILLIN/TAZOBACTAM 4.5 GM/100 ML BAG IV STA (05:31)
[2024-05-06] MEDS: VANCOMYCIN HCL 1,750 MG in SODIUM CHLORIDE 0.9% 500 ML IV ONE (05:56)
[2024-05-06 06:19] LABS: Adenovirus PCR Not Detected (NotDetected); Bordetella parapertussis PCR Not Detected (NotDetected); Bordetella pertussis PCR Not Detected (NotDetected); Chlamydia pneumoniae PCR Not Detected (NotDetected); Coronavirus 229E PCR Not Detected (NotDetected); Coronavirus CoV-2 (COVID19)PCR Not Detected (NotDetected); Coronavirus HKU1 PCR Not Detected (NotDetected); Coronavirus NL63 PCR Not Detected (NotDetected); Coronavirus OC43PCR Not Detected (NotDetected); Human Metapneumovirus PCR Not Detected (NotDetected); Influenza A PCR Not Detected (NotDetected); Influenza B PCR Not Detected (NotDetected); Mycoplasma pneumoniae PCR Not Detected (NotDetected); Parainfluenza Virus 1 PCR Not Detected (NotDetected); Parainfluenza Virus 2 PCR Not Detected (NotDetected); Parainfluenza Virus 3 PCR Not Detected (NotDetected); Parainfluenza Virus 4 PCR Not Detected (NotDetected); Respiratory Syncytial VirusPCR Not Detected (NotDetected); Rhinovirus/Enterovirus PCR Not Detected (NotDetected)
[2024-05-06 06:21] LABS: Appearance Urine Clear (Clear); Bilirubin Urine Negative (Negative); Blood Urine Negative (Negative); Color Urine Yellow; Glucose Urine UA Negative (Negative); Ketones Urine Negative (Negative); Leukocyte Esterase Urine Negative (Negative); Nitrite Urine Negative (Negative); Protein Urine Negative (Negative); Specific Gravity Urine 1.012 (1.000-1.030); Urobilinogen Urine Negative (Negative)
[2024-05-06] MEDS ORDERED: ACETAMINOPHEN 325 MG TAB PO PRN (06:22)
[2024-05-06] MEDS ORDERED: ONDANSETRON INJ 2 MG/ML 2 ML VIAL IV PRN (06:22)
[2024-05-06] MEDS: SERTRALINE HCL 100 MG TABLET PO SCH (08:59)
[2024-05-06] MEDS: PRAVASTATIN SOD 40 MG TAB PO SCH (08:59)
[2024-05-06] MEDS: carvediloL 12.5 MG TAB PO SCH (08:59)
[2024-05-06] MEDS: FERROUS SULFATE 325 MG TAB PO SCH (08:59)
[2024-05-06] MEDS: APIXABAN 5 MG TABLET PO SCH (09:00)
[2024-05-06] MEDS: amLODIPine BESYLATE 5 MG TAB PO SCH (09:00)
[2024-05-06] MEDS ORDERED: PANTOprazole 40 MG TAB PO SCH (09:00)
[2024-05-06] MEDS: PANTOprazole 40 MG TAB PO SCH (09:00)
[2024-05-06] MEDS: AMIODARONE 200 MG TAB PO SCH (09:00)
[2024-05-06] MEDS: FUROSEMIDE 40 MG/4 ML VIAL IV SCH (09:01)
[2024-05-06] MEDS: PIPERACILLIN/TAZOBACTAM 4.5 GM/100 ML BAG IV SCH (10:56)
--- NOTE | 2024-05-06 17:41 | Communication Note ---
Date of Service: May 06, 2024 Bridge note: Eladio is seen in the afternoon on reassessment multiple family members present. Reports he did have fairly rapid onset of shortness of breath after returning home. No fevers and chills but did have slight cough. Had a feeling like he could just not quite get a deep breath. Did have a new oxygen requirement. He reports it is being admitted on oxygen he feels greatly improved. Currently has no shortness of breath, chest pain or difficulty breathing. Remains on 3 L oxygen with no home oxygen requirement. Chest x-ray shows a right lower lung airspace opacity suspicious for pneumonia. He denies aspiration events however in context of his recent cardioversion and leukocytosis may have aspirated on aspiration pneumonia. Agree with ongoing antibiotics. Zosyn continued. MRSA nares negative, vancomycin has been discontinued Did have some mild congestion for which he received Lasix with good output, does not appear overtly volume overloaded at bedside assessment. Can continue daily Lasix/convert to p.o. once at baseline oxygen requirement or if renal function begins to contract. No distress and pleasant at bedside. No questions or concerns at this time.
[2024-05-06] MEDS: TAMSULOSIN HCL 0.4 MG CAP PO SCH (20:20)
--- NOTE | 2024-05-07 06:03 | Electrocardiogram Report ---
Test Reason : Blood Pressure : */* mmHG Vent. Rate : 56 BPM Atrial Rate : 56 BPM P-R Int : 218 ms QRS Dur : 100 ms QT Int : 488 ms P-R-T Axes : 88 -35 24 degrees QTcB Int : 470 ms Sinus bradycardia with 1st degree A-V block with frequent Premature ventricular complexes Left axis deviation Possible Inferior infarct Abnormal ECG When compared with ECG of 05-May-2024 07:37, No significant change Confirmed by Mahin Connors ([id number]) on 05/07/2024 6:02:32 AM Referred By: REFERRED SELF Confirmed By: Mahin Connors
[2024-05-07 06:51] LABS: Basophils # (auto) 0.01 K/uL (0.00-0.20); Basophils % (auto) 0.1 %; Eosinophils # (auto) 0.01 K/uL (0.00-0.50); Eosinophils % (auto) 0.1 %; Hematocrit (blood only) 34.4 % (42.0-52.0); Hemoglobin 11.7 g/dl (14.0-18.0); Immature Granulocytes # (auto) 0.06 K/uL (0.01-0.20); Immature Granulocytes % (auto) 0.5 %; Lymphocytes # (auto) 0.68 K/uL (1.20-3.40); Lymphocytes % (auto) 5.1 %; Mean Corpuscular Hemoglobin 29.8 pg (25.0-34.0); Mean Corpuscular Volume 87.5 fL (80.0-100.0); Mean Platelet Volume 8.7 fL (9.4-12.4); Monocytes # (auto) 0.75 K/uL (0.11-0.59); Monocytes % (auto) 5.7 %; Neutrophils # (auto) 11.73 K/uL (1.40-6.50); Neutrophils % (auto) 88.5 %; Platelet Count 191 K/uL (130-400); RDW Coefficient of Variation 13.8 % (11.5-14.5); RDW Standard Deviation 44.4 fL (36.4-46.3); Red Blood Count 3.93 M/uL (4.70-6.10); White Blood Count 13.24 K/ul (4.8-10.8)
[2024-05-07 07:10] LABS: Albumin Globulin Ratio 1.3 (0.9-2); Albumin Level 3.3 gm/dl (3.4-5.0); BUN Creatinine Ratio 26.5 (10-20); Bilirubin,Total 0.8 mg/dl (0.2-1.0); Calcium 7.6 mg/dl (8.6-10.3); Creatinine Clr Calc Pharmacy 45.4 ml/min; Globulin 2.5 gm/dl (2.5-4.0); Magnesium 2.1 mg/dl (1.7-2.4); Potassium 3.6 mmol/L (3.5-5.1); Total Protein 5.8 gm/dl (6.0-8.3)
[2024-05-07 07:23] LABS: INR 1.1 (0.9-1.1); Partial Thromboplastin Ratio 1.2; Partial Thromboplastin Time 31 Seconds (21-31); Prothrombin Time 11.8 Seconds (9.0-12.0)
--- NOTE | 2024-05-07 08:30 | Hospitalist Progress Note ---
Date of Service May 07, 2024 Assessment & Plan (1) Acute respiratory failure with hypoxia: (2) Right lower lobe pneumonia: (3) Pulmonary edema: (4) Persistent atrial fibrillation: (5) Atrial fibrillation status post cardioversion: (6) Anticoagulant long-term use: Plan The patient is an 83-year-old male with a past medical history including persistent atrial fibrillation, mitral regurgitation, chronic Justice lesion, CKD stage III, anemia, benign essential tremor, BPH with LUTS, long-term anticoagulant use, mild COPD, cardiomyopathy, dyslipidemia, chronic amiodarone therapy, PTSD, Parkinson's disease, and hypertension.The patient underwent a synchronized cardioversion with 200 J yesterday morning, had done well throughout the day, and then about 1030 last evening family reports that he became short of breath with dyspnea on exertion, and they brought him to the em ergency department for assessment. He did eat 3 full meals yesterday, did not have any issues with nausea vomiting, reports normal bowel and urine function, and denies any issues with speech, confusion, swallowing, focal weakness in arms or legs. In the emergency department, workup included a chest x-ray which showed right lower lobe pneumonia and effusion. From the ED patient received the following: Furosemide 40 mg IV, Unasyn 3 g IV, and DuoNeb treatment. He was then referred to the [facility] service for admission for treatment of CHF and probable aspiration pneumonia. #Acute respiratory failure with hypoxia/healthcare associated pneumonia vs asp pna of right lower lobe/pulmonary edema- - MRSA neg, Vanc d/c-ed - biofire neg - will also cover for atypical with doxy x5 days (05/07 - 05/11) - cont Zosyn 4.5 g IV every 8 hours - DuoNebs every 2 hours as needed - Mucinex 600 mg by mouth every 12 hours - wean oxygen, will need ambulatory pulse ox #Pulmonary edema/pleural effusion/paroxysmal atrial fibrillation status post cardioversion/cardiomyopathy/chronic amiodarone therapy/hypertension- - s/p 2 days of IV Lasix 40mg, will hold for now, monitor Cr - Continue amiodarone 200 mg every morning, amlodipine 5 mg every morning, apixaban 5 mg p.o. twice daily, carvedilol 12.5 mg p.o. twice daily - Hold lisinopril 40 mg every morning - Status post cardioversion morning of 05/05. Presently in normal sinus rhythm with occasional PVCs - Most recent echocardiogram 02/03/2024 with ejection fraction 40-45%, moderate mitral regurgitation - repeat CXR in couple days to evaluate effusion / edema #Chronic medical conditions: BPH with LUTS-tamsulosin 0.4 mg at bedtime Hyperlipidemia-pravastatin 40 mg in the morning GERD-pantoprazole 20 mg every morning Anxiety/depression-sertraline 100 mg in the morning Iron deficiency anemia-continue ferrous sulfate 325 mg twice daily CODE STATUS: Full code Admission and Anticipated Discharge Date Admission Date: May 06, 2024 Subjective Admitted yesterday Currently no complaints. States he is feeling better. Review of Systems Review of Systems: Comprehensive ROS negative Physical Exam Physical Exam: Gen: NAD, currently sitting in chair comfortable HEENT: NC/AT, anicteric, MMM CVS: [id number], RRR Lungs: diminished breath sounds on the right to mid back, diminished breath sounds at the left base, mild conversational dyspnea noted Abd: normal breath sounds, soft, NT Ext: trace edema Results & Data Results & Data Vital Signs (Past 12 Hours) Vital Signs Temp Pulse Pulse Resp BP Pulse Ox O2 Del Method 05/07/24 07:06 36.5 C 55 L 18 135/67 97 Nasal Cannula 05/07/24 02:48 36.6 C 58 L 16 123/63 97 Nasal Cannula 05/06/24 23:18 Nasal Cannula 05/06/24 23:16 36.9 C 60 18 134/67 98 Nasal Cannula 05/06/24 22:49 53 L O2 Flow Rate FiO2 05/07/24 07:06 3 05/07/24 02:48 3 05/06/24 23:18 3 05/06/24 23:16 3 05/06/24 22:49 PG Care Time/CCT Total # of Minutes Spent Total Time Spent with Patient: Total time spent is greater than 50% in coordination of care (as documented) at patient's floor/unit and/or counseling patient: Coding Level of Care Code 38729 SUB INP/OBS CARE 235MIN Diagnoses Acute respiratory failure with hypoxia J96.01 Right lower lobe pneumonia J18.9 Pulmonary edema J81.1 Persistent atrial fibrillation I48.19 Atrial fibrillation status post cardioversion I48.91 Anticoagulant long-term use Z79.01
[2024-05-07] MEDS: DOXYCYCLINE HYCLATE 100 MG in DEXTROSE 5% MINI-B 100 ML IV SCH (09:55)
[2024-05-08 08:02] LABS: Basophils # (auto) 0.04 K/uL (0.00-0.20); Basophils % (auto) 0.4 %; Eosinophils # (auto) 0.09 K/uL (0.00-0.50); Hemoglobin 13.7 g/dl (14.0-18.0); Immature Granulocytes # (auto) 0.03 K/uL (0.01-0.20); Immature Granulocytes % (auto) 0.3 %; Lymphocytes # (auto) 1.44 K/uL (1.20-3.40); Lymphocytes % (auto) 16.2 %; Mean Corpuscular Hemoglobin 29.9 pg (25.0-34.0); Mean Corpuscular Hgb Conc 34.3 g/dL (32.0-36.0); Mean Corpuscular Volume 87.3 fL (80.0-100.0); Mean Platelet Volume 8.6 fL (9.4-12.4); Monocytes # (auto) 0.78 K/uL (0.11-0.59); Monocytes % (auto) 8.8 %; Neutrophils # (auto) 6.53 K/uL (1.40-6.50); Neutrophils % (auto) 73.3 %; Platelet Count 204 K/uL (130-400); RDW Coefficient of Variation 14.1 % (11.5-14.5); RDW Standard Deviation 44.5 fL (36.4-46.3); Red Blood Count 4.58 M/uL (4.70-6.10); White Blood Count 8.91 K/ul (4.8-10.8)
[2024-05-08 08:13] LABS: Albumin Globulin Ratio 1.3 (0.9-2); Albumin Level 3.6 gm/dl (3.4-5.0); BUN Creatinine Ratio 18.9 (10-20); Bilirubin,Total 0.9 mg/dl (0.2-1.0); Creatinine Clr Calc Pharmacy 46.7 ml/min; Globulin 2.8 gm/dl (2.5-4.0); Magnesium 2.1 mg/dl (1.7-2.4); Potassium 4.1 mmol/L (3.5-5.1); Total Protein 6.4 gm/dl (6.0-8.3)
[2024-05-08 08:20] LABS: INR 1.1 (0.9-1.1); Partial Thromboplastin Ratio 1.1; Partial Thromboplastin Time 30 Seconds (21-31)
--- NOTE | 2024-05-08 08:58 | Hospitalist Progress Note ---
Date of Service May 08, 2024 Assessment & Plan (1) Acute respiratory failure with hypoxia: (2) Right lower lobe pneumonia: (3) Pulmonary edema: (4) Persistent atrial fibrillation: (5) Atrial fibrillation status post cardioversion: (6) Anticoagulant long-term use: Plan The patient is an 83-year-old male with a past medical history including persistent atrial fibrillation, mitral regurgitation, chronic Justice lesion, CKD stage III, anemia, benign essential tremor, BPH with LUTS, long-term anticoagulant use, mild COPD, cardiomyopathy, dyslipidemia, chronic amiodarone therapy, PTSD, Parkinson's disease, and hypertension.The patient underwent a synchronized cardioversion with 200 J yesterday morning, had done well throughout the day, and then about 1030 last evening family reports that he became short of breath with dyspnea on exertion, and they brought him to the emergency department for assessment. He did eat 3 full meals yesterday, did not have any issues with nausea vomiting, reports normal bowel and urine function, and denies any issues with speech, confusion, swallowing, focal weakness in arms or legs. In the emergency department, workup included a chest x-ray which showed right lower lobe pneumonia and effusion. From the ED patient received the following: Furosemide 40 mg IV, Unasyn 3 g IV, and DuoNeb treatment. He was then referred to the [facility] for admission for treatment of CHF and probable aspiration pneumonia. #Acute respiratory failure with hypoxia/healthcare associated pneumonia vs asp pna of right lower lobe/pulmonary edema- - MRSA neg, Vanc d/c-ed - biofire neg - will also cover for atypical with doxy x5 days (05/07 - 05/11) - cont Zosyn 4.5 g IV every 8 hours - DuoNebs every 2 hours as needed - Mucinex 600 mg by mouth every 12 hours - weaned oxygen, will need ambulatory pulse ox , to be done tomorrow #Pulmonary edema/pleural effusion/paroxysmal atrial fibrillation status post cardioversion/cardiomyopathy/chronic amiodarone therapy/hypertension- - s/p 2 days of IV Lasix 40mg, will hold for now, monitor Cr - Continue amiodarone 200 mg every morning, amlodipine 5 mg every morning, apixaban 5 mg p.o. twice daily, carvedilol 12.5 mg p.o. twice daily - resumed lisinopril - Status post cardioversion morning of 05/05. Presently in normal sinus rhythm with occasional PVCs - Most recent echocardiogram 02/03/2024 with ejection fraction 40-45%, moderate mitral regurgitation - rpt CXR tomorrow #Chronic medical conditions: BPH with LUTS-tamsulosin 0.4 mg at bedtime Hyperlipidemia-pravastatin 40 mg in the morning GERD-pantoprazole 20 mg every morning Anxiety/depression-sertraline 100 mg in the morning Iron deficiency anemia-continue ferrous sulfate 325 mg twice daily CODE STATUS: Full code #Dispo- potential d/c tomorrow 05/07: update provided to pt's and daughters 05/08: pt's granddaughter and her at bedside Admission and Anticipated Discharge Date Admission Date: May 06, 2024 Subjective No acute events overnight Currently no complaints. States he is feeling better. Review of Systems Review of Systems: Comprehensive ROS negative Physical Exam Physical Exam: Gen: NAD, currently sitting in chair comfortable HEENT: NC/AT, anicteric, MMM CVS: s1s2nl, RRR Lungs: diminished breath sounds on the right to mid back, diminished breath sounds at the left base, mild conversational dyspnea noted Abd: normal breath sounds, soft, NT Ext: trace edema Results & Data Results & Data Vital Signs (Past 12 Hours) Vital Signs Temp Pulse Pulse Resp BP Pulse Ox O2 Del Method 05/08/24 07:54 72 05/08/24 07:15 36.5 C 59 L 20 167/67 H 91 Room Air 05/08/24 04:34 Room Air 05/08/24 02:57 36.4 C L 56 L 20 149/69 H 91 Room Air 05/07/24 23:31 50 L 05/07/24 23:00 36.5 C 58 L 20 131/64 90 Room Air PG Care Time/CCT Total # of Minutes Spent Total Time Spent with Patient: Total time spent is greater than 50% in coordination of care (as documented) at patient's floor/unit and/or counseling patient: Coding Level of Care Code 73498 SUB INP/OBS CARE 2/35MIN Diagnoses Acute respiratory failure with hypoxia J96.01 Right lower lobe pneumonia J18.9 Pulmonary edema J81.1 Persistent atrial fibrillation I48.19 Atrial fibrillation status post cardioversion I48.91 Anticoagulant long-term use Z79.01
[2024-05-08] MEDS: lisinopril 40 MG TAB PO SCH (09:46)
--- NOTE | 2024-05-09 08:00 | XRay Report ---
EXAM: XR chest 1V portable CLINICAL HISTORY: Hypoxia. TECHNIQUE: An X-ray image of the chest is obtained in AP projection. COMPARISON: 05/06/2024. FINDINGS: Pulmonary Parenchyma: Regression of right lower lung zone air space filling opacity with residual mild peribronchial thickening. Bilateral perihilar prominent vasculature suggesting lung congestion. No evidence of pleural effusion or pleural thickening. Heart and Mediastinum: Heart size can not be assessed due to the AP projection. Prominent aortic shadow. No mediastinal widening or masses. No hilar or mediastinal lymphadenopathy. Bony Thorax: The bony thorax appears intact without fractures or deformities. Soft Tissues: Soft tissues overlying the chest wall are unremarkable. IMPRESSION: 1. Regression of right lower lung zone air space filling opacity with residual peribronchial thickening. 2. Bilateral perihilar prominent vasculature suggesting lung congestion. (stable) Electronically signed by Bal Herrera 05-09-2024 07:59 AM
--- NOTE | 2024-05-09 08:11 | Hospitalist Progress Note ---
Date of Service May 09, 2024 Assessment & Plan (1) Acute respiratory failure with hypoxia: (2) Right lower lobe pneumonia: (3) Pulmonary edema: (4) Persistent atrial fibrillation: (5) Atrial fibrillation status post cardioversion: (6) Anticoagulant long-term use: Plan The patient is an 83-year-old male with a past medical history including persistent atrial fibrillation, mitral regurgitation, chronic Justice lesion, CKD stage III, anemia, benign essential tremor, BPH with LUTS, long-term anticoagulant use, mild COPD, cardiomyopathy, dyslipidemia, chronic amiodarone therapy, PTSD, Parkinson's disease, and hypertension.The patient underwent a synchronized cardioversion with 200 J yesterday morning, had done well throughout the day, and then about 1030 last evening family reports that he became short of breath with dyspnea on exertion, and they brought him to the emergency department for assessment. He did eat 3 full meals yesterday, did not have any issues with nausea vomiting, reports normal bowel and urine function, and denies any issues with speech, confusion, swallowing, focal weakness in arms or legs. In the emergency department, workup included a chest x-ray which showed right lower lobe pneumonia and effusion. From the ED patient received the following: Furosemide 40 mg IV, Unasyn 3 g IV, and DuoNeb treatment. [facility] for treatment of CHF and probable aspiration pneumonia. #Acute respiratory failure with hypoxia/healthcare associated pneumonia vs asp pna of right lower lobe/pulmonary edema- - MRSA neg, Vanc d/c-ed - biofire neg - will also cover for atypical with doxy x5 days (05/07 - 05/11) - cont Zosyn 4.5 g IV every 8 hours - DuoNebs every 2 hours as needed - Mucinex 600 mg by mouth every 12 hours - weaned to RA, ambulatory pulse ox complete, no need for supplemental oxygen #Pulmonary edema/pleural effusion/paroxysmal atrial fibrillation status post cardioversion/cardiomyopathy/chronic amiodarone therapy/hypertension- - s/p 2 days of IV Lasix 40mg, changed to lasix 20mg PO daily - Continue amiodarone 200 mg every morning, amlodipine 5 mg every morning, apixaban 5 mg p.o. twice daily, carvedilol 12.5 mg p.o. twice daily - resumed lisinopril - Status post cardioversion morning of 05/05. Presently in normal sinus rhythm with occasional PVCs - Most recent echocardiogram 02/03/2024 with ejection fraction 40-45%, moderate mitral regurgitation - CXR (05/09): improvement of the right lower lung zone, some residual peribronchial thickening present, b/l perihilar prominent vasculature suggesting lung congestion (stable) #Chronic medical conditions: BPH with LUTS-tamsulosin 0.4 mg at bedtime Hyperlipidemia-pravastatin 40 mg in the morning GERD-pantoprazole 20 mg every morning Anxiety/depression-sertraline 100 mg in the morning Iron deficiency anemia-continue ferrous sulfate 325 mg twice daily CODE STATUS: Full code #Dispo- potential d/c tomorrow pending PT / OT 05/07: update provided to pt's and daughters 05/08: pt's granddaughter and her at bedside 05/09: family at bedside Admission and Anticipated Discharge Date Admission Date: May 06, 2024 Subjective No acute events overnight Currently no complaints. Review of Systems Review of Systems: Comprehensive ROS negative Physical Exam Physical Exam: Gen: NAD, currently sitting in chair comfortable HEENT: NC/AT, anicteric, MMM CVS: s1s2nl, RRR Lungs: breath sounds improving , no wheezing / rales noted Abd: normal breath sounds, soft, NT Ext: no edema Results & Data Results & Data Vital Signs (Past 12 Hours) Vital Signs Temp Pulse Pulse Resp BP Pulse Ox O2 Del Method 05/09/24 07:49 36.5 C 63 20 161/76 H 91 Room Air 05/09/24 07:42 Room Air 05/09/24 07:00 48 L 05/09/24 03:11 36.5 C 60 17 138/72 95 Room Air 05/08/24 23:33 36.8 C 79 17 138/56 L 91 Room Air 05/08/24 23:10 51 L 05/08/24 21:25 Room Air PG Care Time/CCT Total # of Minutes Spent Total Time Spent with Patient: Total time spent is greater than 50% in coordination of care (as documented) at patient's floor/unit and/or counseling patient: Coding Level of Care Code 35139 SUB INP/OBS CARE 2/35MIN Diagnoses Acute respiratory failure with hypoxia J96.01 Right lower lobe pneumonia J18.9 Pulmonary edema J81.1 Persistent atrial fibrillation I48.19 Atrial fibrillation status post cardioversion I48.91 Anticoagulant long-term use Z79.01
[2024-05-09 08:42] LABS: Basophils # (auto) 0.05 K/uL (0.00-0.20); Basophils % (auto) 0.7 %; Eosinophils # (auto) 0.12 K/uL (0.00-0.50); Eosinophils % (auto) 1.6 %; Hematocrit (blood only) 41.8 % (42.0-52.0); Hemoglobin 14.4 g/dl (14.0-18.0); Immature Granulocytes # (auto) 0.03 K/uL (0.01-0.20); Immature Granulocytes % (auto) 0.4 %; Lymphocytes # (auto) 1.21 K/uL (1.20-3.40); Lymphocytes % (auto) 16.4 %; Mean Corpuscular Hemoglobin 30.5 pg (25.0-34.0); Mean Corpuscular Hgb Conc 34.4 g/dL (32.0-36.0); Mean Corpuscular Volume 88.6 fL (80.0-100.0); Mean Platelet Volume 8.6 fL (9.4-12.4); Monocytes # (auto) 0.61 K/uL (0.11-0.59); Monocytes % (auto) 8.3 %; Neutrophils # (auto) 5.35 K/uL (1.40-6.50); Neutrophils % (auto) 72.6 %; Platelet Count 203 K/uL (130-400); RDW Coefficient of Variation 13.8 % (11.5-14.5); RDW Standard Deviation 44.9 fL (36.4-46.3); Red Blood Count 4.72 M/uL (4.70-6.10); White Blood Count 7.37 K/ul (4.8-10.8)
[2024-05-09 09:01] LABS: Albumin Globulin Ratio 1.3 (0.9-2); Albumin Level 3.7 gm/dl (3.4-5.0); BUN Creatinine Ratio 16.5 (10-20); Bilirubin,Total 1.1 mg/dl (0.2-1.0); Calcium 7.9 mg/dl (8.6-10.3); Creatinine Clr Calc Pharmacy 53.7 ml/min; Globulin 2.9 gm/dl (2.5-4.0); Magnesium 2.1 mg/dl (1.7-2.4); Potassium 3.3 mmol/L (3.5-5.1); Total Protein 6.6 gm/dl (6.0-8.3)
[2024-05-09 09:05] LABS: INR 1.1 (0.9-1.1); Partial Thromboplastin Ratio 1.2; Partial Thromboplastin Time 31 Seconds (21-31); Prothrombin Time 11.9 Seconds (9.0-12.0)
[2024-05-09] MEDS: POTASSIUM CHLORIDE CRTAB 20 MEQ TABCR PO STA (11:31)
[2024-05-09] MEDS: FUROSEMIDE 20 MG TAB PO SCH (13:35)
[2024-05-09 23:11] VITALS: RESP 18
[2024-05-10 07:29] VITALS: O2SAT 92
[2024-05-10 08:28] LABS: BUN Creatinine Ratio 15.2 (10-20); Calcium 8.3 mg/dl (8.6-10.3); Creatinine Clr Calc Pharmacy 49.4 ml/min; Magnesium 2.1 mg/dl (1.7-2.4); Potassium 3.6 mmol/L (3.5-5.1)
[2024-05-10 11:47] VITALS: PULSE 57; TEMP 98.1
[2024-05-10] MEDS: POTASSIUM CHLORIDE CRTAB 20 MEQ TABCR PO STA (11:51)
--- NOTE | 2024-05-10 12:18 | Discharge Summary ---
Discharge Summary Date of Service May 10, 2024 Principal Dx & Hospital Course #1 = Principal Diagnosis (1) Acute respiratory failure with hypoxia: (2) Right lower lobe pneumonia: (3) Pulmonary edema: (4) Persistent atrial fibrillation: (5) Atrial fibrillation status post cardioversion: (6) Anticoagulant long-term use: Plan The patient is an 83-year-old male with a past medical history including persistent atrial fibrillation, mitral regurgitation, chronic Justice lesion, CKD stage III, anemia, benign essential tremor, BPH with LUTS, long-term anticoagulant use, mild COPD, cardiomyopathy, dyslipidemia, chronic amiodarone therapy, PTSD, Parkinson's disease, and hypertension.The patient underwent a synchronized cardioversion with 200 J yesterday morning, had done well throughout the day, and then about 1030 last evening family reports that he became short of breath with dyspnea on exertion, and they brought him to the emergency department for assessment. He did eat 3 full meals yesterday, did not have any issues with nausea vomiting, reports normal bowel and urine function, and denies any issues with speech, confusion, swallowing, focal weakness in arms or legs. In the emergency department, workup included a chest x-ray which showed right lower lobe pneumonia and effusion. From the ED patient received the following: Furosemide 40 mg IV, Unasyn 3 g IV, and DuoNeb treatment. He was then referred to the [facility] for admission for treatment of CHF and probable aspiration pneumonia. #Acute respiratory failure with hypoxia/healthcare associated pneumonia vs asp pna of right lower lobe/pulmonary edema- - MRSA neg, Vanc d/c-ed - biofire neg - will also cover for atypical with doxy x5 days (05/07 - 05/11) - on Zosyn / Doxy, discharged on PO Augmentin / Doxy - Mucinex 600 mg by mouth every 12 hours - weaned off of oxygen, ambulatory pulse ox neg - PT / OT recs home with family support #Pulmonary edema/pleural effusion/paroxysmal atrial fibrillation status post cardioversion/cardiomyopathy/chronic amiodarone therapy/hypertension- - s/p 2 days of IV Lasix 40mg, changed to lasix 20mg PO daily, d/c on Lasix 10mg po daily x5 days, will d/c on KCl as well, PCP to order K / Cr to monitor renal fn. - Continue amiodarone 200 mg every morning, amlodipine 5 mg every morning, apixaban 5 mg p.o. twice daily, carvedilol 12.5 mg p.o. twice daily, lisinopril - Status post cardioversion morning of 05/05. Presently in normal sinus rhythm with occasional PVCs - Most recent echocardiogram 02/03/2024 with ejection fraction 40-45%, moderate mitral regurgitation - CXR (05/09): improvement of the right lower lung zone, some residual peribronchial thickening present, b/l perihilar prominent vasculature suggesting lung congestion (stable) #Chronic medical conditions: BPH with LUTS-tamsulosin 0.4 mg at bedtime Hyperlipidemia-pravastatin 40 mg in the morning GERD-pantoprazole 20 mg every morning Anxiety/depression-sertraline 100 mg in the morning Iron deficiency anemia-continue ferrous sulfate 325 mg twice daily CODE STATUS: Full code #Dispo- potential d/c tomorrow pending PT / OT 05/07: update provided to pt's and daughters 05/08: pt's granddaughter and her at bedside 05/09: family at bedside 05/10: family at bedside, d/c plan discussed in detail Admission HPI Per Admitting Provider The patient is an 83-year-old male with a past medical history including persistent atrial fibrillation, mitral regurgitation, chronic Justice lesion, CKD stage III, anemia, benign essential tremor, BPH with LUTS, long-term anticoagulant use, mild COPD, cardiomyopathy, dyslipidemia, chronic amiodarone therapy, PTSD, Parkinson's disease, and hypertension.The patient underwent a synchronized cardioversion with 200 J yesterday morning, had done well throughout the day, and then about 1030 last evening family reports that he became short of breath with dyspnea on exertion, and they brought him to the emergency department for assessment. He did eat 3 full meals yesterday, did not have any issues with nausea vomiting, reports normal bowel and urine function, and denies any issues with speech, confusion, swallowing, focal weakness in arms or legs. Discharge Exam Gen: NAD, currently sitting in chair comfortable HEENT: NC/AT, anicteric, MMM CVS: s1s2nl, RRR Lungs: breath sounds improving , no wheezing / rales noted Abd: normal breath sounds, soft, NT Ext: no edema Discharge Plan Discharge Items Patient Disposition: Home - Self-Care Reason For Visit: PNEUMONIA, PLEURAL EFFUSION Discharge Diagnosis: Pneumonia Activity: Resume your previous activity Non-emergency contact: Primary Care Provider Call non-emergency contact if: you have any medication questions and your symptoms worsen Follow-up/Referrals: Ruby Wong, [Primary Care Provider] - Diet: Heart Healthy Addtl Attending Provider Instructions: * Have blood work done on Friday / to check potassium level and creatinine. Please talk with your primary care doctor to have this ordered * Please follow up with your primary care doctor in about 7 to 10 days. Pending Studies at Discharge: No Stand-Alone Forms: My [facility] [employer], Smoking Cessation Medications and DC Order Prescriptions: New amoxicillin-pot clavulanate 875-125 mg tablet 1 tab PO BID Qty: 6 0RF furosemide 20 mg tablet 10 mg PO QAM Qty: 5 0RF potassium chloride 10 mEq capsule, extended release 10 meq PO DAILY Qty: 5 0RF doxycycline hyclate 100 mg capsule 100 mg PO BID Qty: 3 0RF Continued Eliquis 5 mg tablet 5 mg PO BID tamsulosin 0.4 mg capsule 0.4 mg PO HS lisinopril 40 mg tablet 40 mg PO QAM Qty: 90 amlodipine 5 mg tablet 5 mg PO QAM Qty: 30 sertraline 100 mg tablet 100 mg PO QAM ferrous sulfate 325 mg (65 mg iron) tablet 325 mg PO BID carvedilol 25 mg Tablet 12.5 mg PO BID Rx Instructions: must administer with a meal/food pravastatin 40 mg tablet 40 mg PO QAM amiodarone 200 mg tablet 200 mg PO QAM pantoprazole 20 mg tablet,delayed release (DR/EC) 20 mg PO QAM Discharge Orders: Discharge Order (Routine); Ordered 05/10/24 Ordered By: Asia Wilson Admission Data Admit Date/Time: 05/06/24 04:56 Attending Provider: Asia Wilson Admit Provider: Daljit Vale Primary Care Provider: Ruby Wong Other Providers: Daljit Vale Hospital Stay Data Consultations 05/06/24 04:06 ED Decision to Admit Stat Discharge Instructions Given to Patient (Per Discharging Provider) * Have blood work done on Friday / to check potassium level and creatinine. Please talk with your primary care doctor to have this ordered * Please follow up with your primary care doctor in about 7 to 10 days. Total Time Total Time Spent Total Time Spent (In Minutes): 35 Coding Level of Care Code 34800 INP/OBS DISCH >30 MIN Diagnoses Acute respiratory failure with hypoxia J96.01 Right lower lobe pneumonia J18.9 Pulmonary edema J81.1 Persistent atrial fibrillation I48.19 Atrial fibrillation status post cardioversion I48.91 Anticoagulant long-term use Z79.01
[2024-05-10 12:33] VITALS: BP 156/69
[2024-05-10] MEDS ORDERED: DOXYCYCLINE HYCLATE 100 MG CAP PO SCH (19:00)
== END 2024-05-10 13:36 | disposition home or self-care (01) | DRG 177 ==
LOC: SUATTDRO → ED 03:03 → EDINP 04:56 → SUATTDRO 04:56 → 2S 11:04